=== PATIENT | female | born 1980 | race Caucasian/White ===

== ENCOUNTER 2016-08-10 10:30 | Outpatient (RCR) | payer BC ==
[~2016-08-10 10:30] MED LIST: CPR500T PO; ETD400T PO; HYDR1TAB8 OP; PRX10T PO; SULF1TAB38 PO
== END 2016-10-11 | disposition home or self-care (01) ==
LOC: CARD 10:30
PROVIDERS: ATTEND Internal Medicine Interventional Cardiology
DX: I10 Essential (primary) hypertension (principal); I47.2 Ventricular tachycardia; R00.2 Palpitations; Z72.0 Tobacco use
CPT/HCPCS: 93270

== ENCOUNTER 2017-11-16 17:58 | Emergency (ER) | payer SELFPAY ==
[~2017-11-16] VITALS: Ht 170.2 cm; Wt 80.7 kg
--- OUTSIDE RECORDS SUMMARY | 2017-11-16 18:03 | XMS REPORT ---
Author Author JOANNE ZAMORA Organization [facility] Address [address] [place] [address] Care Team Providers Care Interventional Radiology Rn Name Role Phone JOANNE ZAMORA Unavailable PROBLEMS Type Condition ICD9-CM Code QKG22-HJ Code Onset Dates Condition Status SNOMED Code Problem Screening for malignant neoplasm of the cervix V76.2 Active 837676671 Problem Urinary tract infection, site not specified 599.0 Active 88362580 Problem Dysuria 788.1 Active 60585823 Problem Encounter for long-term (current) use of other medications V58.69 Active 618945408 Problem Unspecified breast screening V76.10 Active 841109924 Problem Abdominal pain, right lower quadrant 789.03 Active 983371064 Problem Special screening examination, human papillomavirus [HPV] V73.81 Active 718918812 ALLERGIES No Known Allergies ENCOUNTERS Encounter Location Date Diagnosis [facility] [address] [id number] [id number] Jul, Dysuria R30.0 and Flank pain R10.9 [facility] [address], [place] [address] Jul, [facility] [id number] [place] [phone] Jul, [facility] [id number] [place] [phone] Jun, [facility] [id number] [place] [phone] Jun, [facility] [id number] [place] [phone] Jun, [facility] [id number] [place] [phone] Jun, [facility] [address] [address] Jun, [facility] [address] [address] Jun, [facility] [id number] [place] [phone] May, [facility] [id number] [place] [phone] May, [facility] [id number] [place] [phone] Jan, [id number] [place] [phone] Jan, [facility] [id number] [place] [phone] Apr, [id number] [place] [phone] Apr, [id number] [place] [phone] Apr, [facility] [id number] [place] [phone] Dec, [facility] [address], [place] [address] Nov, IMMUNIZATIONS No Known Immunizations SOCIAL HISTORY Never Assessed REASON FOR VISIT UTI, burning, flank pain Mago [employer] PLAN OF CARE Activity Details Follow Up prn if not improving in clinic or with PCP Reason: VITAL SIGNS Height 61 in 2017-07-26 Weight 182.4 lbs 2017-07-26 Temperature 99.0 degrees Fahrenheit 2017-07-26 Heart Rate 110 bpm 2017-07-26 Respiratory Rate 18 2017-07-26 BMI 34.46 kg/m2 2017-07-26 Blood pressure systolic 110 mmHg 2017-07-26 Blood pressure diastolic 78 mmHg 2017-07-26 MEDICATIONS Medication Instructions Dosage Frequency Start Date End Date Duration Status Paxil 40 MG Orally Once a day 1 Tablet by Oral route 1 time per day 24h Apr, Active Cipro 500 mg Orally every 12 hrs 1 tablet 12h Jul, Jul, 07 days Active Pyridium 100 mg Orally Three times a day 2 tablets after meals 8h Jul, Jul, 2 day(s) Active RESULTS No Results PROCEDURES Procedure Date Ordered Result Body Site URINALYSIS, AUTO, W/O SCOPE July 26, 2017 URINE CULTURE/COLONY COUNT July 26, 2017 INSTRUCTIONS MEDICATIONS ADMINISTERED No Known Medications MEDICAL (GENERAL) HISTORY Type Description Date Surgical History tonsillectomy and adenoidectomy Surgical History tubal ligation Surgical History stone basket Hospitalization History Surgery(s)/Childbirth(s) only
--- OUTSIDE RECORDS SUMMARY | 2017-11-16 18:03 | XMS REPORT | Continuity of Care Document ---
Author Author [facility] [place] Address Unknown Phone Unavailable Allergies Active Description Code Type Severity Reaction Onset Reported/Identified Relationship to Patient Clinical Status Yes No Known Drug Allergies [id number] Drug Allergy Unknown N/A 09/05/2010 Medications There is no data. Problems Date Dx Coded Attending Type Code Diagnosis Diagnosed By 11/16/2008 YAS CHANG APRN A 599.0 Urinary Tract Infection 11/16/2008 NIC HAUSER DO 599.0 Urinary Tract Infection 12/15/2008 JAVIER CHANG APRNIDI A 729.1 MYALGIA AND MYOSITIS UNSPECIFIED 12/15/2008 CHARLENE MARINELLI YAS A 780.52 INSOMNIA UNSPECIFIED 12/15/2008 AJAY HAUSER DOA K 729.1 MYALGIA AND MYOSITIS UNSPECIFIED 12/15/2008 AJAY HAUSER DOA K 780.52 INSOMNIA UNSPECIFIED 08/23/2009 CHARLENE ISIS YAS A 477.9 ALLERGIC RHINITIS 08/23/2009 CHARLENE GEOSPATIAL ANALYST, YAS A 780.79 MALAISE AND FATIGUE 08/23/2009 HAUSER AJAY BUSTAMANTEA K 477.9 ALLERGIC RHINITIS 08/23/2009 AJAY HAUSER DOA K 780.79 MALAISE AND FATIGUE 09/10/2009 CHARLENERamon MARINELLI YAS A 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 09/10/2009 CHARLENE ISIS YAS A 300.00 ANXIETY UNSPEC 09/10/2009 CHARLENE ISIS YAS A 625.9 pelvic pain 09/10/2009 CHARLENE ISIS YAS A 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, ROUTINE 09/10/2009 AJAY HAUSER DOA K 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 09/10/2009 AJAY HAUSER DOA K 300.00 ANXIETY UNSPEC 09/10/2009 AJAY HAUSER DOA K 625.9 pelvic pain 09/10/2009 AJAY HAUSER DOA K 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, ROUTINE 04/22/2011 JAVIER CHANG APRNIDI A V58.69 taking high-risk medication for a long time 04/22/2011 HAUSER NIC BUSTAMANTE V58.69 taking high-risk medication for a long time 05/01/2011 CHARLENE CLEMENTRamon YAS A 599.0 URINARY TRACT INFECTION SITE NOT SPECIFIED 05/01/2011 NIC HAUSER DO 599.0 URINARY TRACT INFECTION SITE NOT SPECIFIED 05/18/2013 CHARLENE CLEMENTRamon YAS A 788.1 DYSURIA 05/18/2013 NIC HAUSER DO 788.1 DYSURIA 06/14/2013 NIC HAUSER DO 789.03 ABDOMINAL PAIN RIGHT LOWER QUADRANT 06/14/2013 NIC HAUSER DO V73.81 HPV SCREENING 06/14/2013 NIC HAUSER DO V76.10 BREAST CANCER SCREENING 06/14/2013 NIC HAUSER DO V76.2 CERVICAL CANCER SCREENING (PAP SMEAR) 07/13/2016 CHARLENE, YAS Vijay GEOSPATIAL ANALYST Ot 078.11 CONDYLOMA ACUMINATUM 07/13/2016 CHARLENE, YAS Vijay GEOSPATIAL ANALYST Ot 789.03 ABDOMINAL PAIN, RIGHT LOWER QUADRANT 07/13/2016 CHARLENE, YAS Vijay CLEMENTN Ot V72.31 ROUTINE GYNECOLOGICAL EXAMINATION 07/13/2016 CHARLENE, YAS A GEOSPATIAL ANALYST Ot V72.62 LAB EXAM ORDERED PART OF A ROUTINE GE 07/13/2016 CHARLENE, YAS Vijay GEOSPATIAL ANALYST Ot V73.81 SPECIAL SCREENING EXAMINATION, HUMAN PAP 07/13/2016 CHARLENE, YAS Vijay GEOSPATIAL ANALYST Ot V76.10 SCRN MALIGN NEOP, BRST SCREENING, NOS 08/20/2016 YAMILE MAGALLANES, Carlos LUCAS Ot I10 ESSENTIAL (PRIMARY) HYPERTENSION 08/20/2016 Carlos OVALLE MD Ot I47.2 VENTRICULAR TACHYCARDIA 08/20/2016 Carlos OVALLE MD Ot R00.2 PALPITATIONS 08/20/2016 Carlos OVALLE MD Ot Z72.0 TOBACCO USE 10/11/2016 Carlos OVALLE MD Ot I10 ESSENTIAL (PRIMARY) HYPERTENSION 10/11/2016 Carlos OVALLE MD Ot I47.2 VENTRICULAR TACHYCARDIA 10/11/2016 YAMILE MAGALLANES, Carlos LUCAS Ot R00.2 PALPITATIONS 10/11/2016 YAMILE MAGALLANES, Carlos LUCAS Ot Z72.0 TOBACCO USE Procedures Code Description [place] [address] LESION DESTRUCTION 1-14 ( BENIGN) 05/18/2013 23250 UA W/ CULTURE IF INDICATED 05/18/2013 08141 LESION DESTRUCTION 1-14 ( BENIGN) 06/14/2013 34236 US PELVIC COMPL (REFLEX CPT - 44181) 06/14/2013 38097 PAP SMEAR 06/14/2013 Q0091 PAP SMEAR OBTAIN SMEAR 06/14/2013 Results Test Result Range CBC with Auto Diff - 03/16/16 10:58 Baso% 0.60 % 0.00-2.50 Eos 0.1 K/uL 0.0-0.7 Eos% 1.2 % 0.0-7.0 Hct 44.2 % 36.0-46.0 Hgb 14.8 g/dL 13.0-15.0 Lym 3.10 K/uL 0.60-3.40 Lym% 48.1 % 10.0-50.0 MCH 29.5 pg 27.0-31.0 MCHC 33.5 g/dL 32.0-36.0 MCV 88.2 fL 80.0-97.0 Jasper% 5.3 % 0.0-12.0 MPV 12.1 fL 7.4-10.0 Bobby% 44.8 % 37.0-80.0 Plt 263 K/uL 150-400 RBC 5.01 M/uL 3.60-5.00 RDW 13.5 % 11.6-14.8 WBC 6.45 K/uL 5.00-10.00 Bobby 2.89 K/uL 2.00-6.90 Jasper 0.3 K/uL 0.0-0.9 Baso 0.0 K/uL 0.0-0.2 Urine Culture - 03/16/16 10:58 PRELIM CULTURE RESULTS No Growth 24 hours FINAL CULTURE RESULTS <10,000 Gram Positive Mixed Joelle [id number] Skin Contaminant [id number] Further Workup done MEDIA PLATED Setup at 15:40 on 03/16/2016 CULTURE SOURCE urine Encounters ACCT No. Visit Date/Time Discharge Status Pt. Type Provider Facility Loc./Unit Complaint [id number] 06/14/2013 15:28:00 06/14/2013 23:59:59 CLS Outpatient NIC HAUSER DO [id number] 05/18/2013 13:23:00 05/18/2013 23:59:59 CLS Outpatient YAS CHANG APRN [id number] 07/26/2017 15:20:00 07/26/2017 23:59:59 [id number] 10/12/2016 10:30:00 10/12/2016 23:59:59 CLS Preadmit Carlos OVALLE MD [facility] CARD HTN,NSVT,PALPITATIONS [id number] 08/10/2016 10:30:00 10/11/2016 00:01:00 DIS Outpatient Carlos OVALLE MD [facility] CARD HTN,NSVT,PALPITATIONS [id number] 06/23/2013 14:45:00 06/23/2013 23:59:59 CLS Outpatient YAS CHANG APRN [facility] RAD RLQ PAIN [id number] 03/16/2016 11:05:00 03/16/2016 23:59:00 DIS Outpatient Desiree Gardner
[2017-11-16] MEDS ORDERED: ORPHENADRINE 60 MG/2 ML (NORFLEX) AMP IM ONE (19:00)
[2017-11-16] MEDS ORDERED: KETOROLAC 60 MG/2 ML VIAL IM ONE (19:00)
--- NOTE | 2017-11-16 19:54 | ED Back Pain ---
General Chief Complaint: Back Problems Stated Complaint: LOWER BACK PAIN Nursing Triage Note: ARRIVED VIA AMB TO ROOM 04. COMPLAINS OF ONGOING SCIATICA PAIN SINCE SEPTEMBER. SEEN A DR 2 WEEKS AGO ET PUT ON A STEROID, MUSCLE RELAXER, AND IBUPROFEN. OUT OF THE STEROID AND HAS NOT TAKEN THE OTHERS TODAY. Nursing Sepsis Screen: No Definite Risk Source of Information: Patient, Family Exam Limitations: No Limitations History of Present Illness Date Seen by Provider: Nov 16, 2017 Time Seen by Provider: 19:00 Initial Comments Patient is a 36 year old female who presents to the emergency room with c/o low back pain and left side sciatic pain since september. She has seen Dr. Guero dickerson 2 weeks ago and was given flexril and a "steroid". She reports that she has finished the steroid and still having pain. She reports having plenty of the flexiril left. Denies loss of bowel or bladder and saddle paresthesia. Location: Lumbar Spine Timing/Duration: Other (2 weeks) Pain/Injury Location: Back Radiation: Upper Legs Associated Symptoms: muscle spasms; No numbness in legs/feet; lower back pain; No loss of bladder control, No loss of bowel control Allergies and Home Medications Allergies Coded Allergies: No Known Drug Allergies (Unverified , 09/05/10) Patient Home Medication List Home Medication List Reviewed: Yes Constitutional: see HPI; No chills, No fever Musculoskeletal: see HPI, back pain (low back pain and left sciatica pain) Past Tswckhe-Jfpacu-Anzjzb Hx Past Med/Social Hx: Reviewed Nursing Past Med/Soc Hx Patient Social History Recent Foreign Travel: No Contact w/Someone Who Travel: No Recent Infectious Disease Expo: No Past Medical History Surgeries: Yes Respiratory: No Cardiac: No Neurological: No Reproductive Disorders: No Sexually Transmitted Disease: Yes (HPV) Genitourinary: No Gastrointestinal: No Musculoskeletal: Yes (SCIATICA) Endocrine: No Cancer: No Psychosocial: Yes Anxiety Integumentary: No Blood Disorders: Yes Family Medical History Reviewed Nursing Family Hx Physical Exam Vital Signs Vital Signs - First Documented 11/16/17 18:05 Temp 98.0 Pulse 93 Resp 16 B/P (MAP) 136/96 (109) Pulse Ox 99 O2 Delivery Room Air Capillary Refill : Less Than 3 Seconds Height, Weight, BMI Height: 5'7.00" Weight: 178lbs. oz. 80.909975nt; BMI Method:Stated General Appearance: No Apparent Distress, WD/WN Cardiovascular: Regular Rate, Rhythm, No Edema, No Gallop, No JVD, No Murmur, Normal Peripheral Pulses Respiratory: Chest Non Tender, Lungs Clear, Normal Breath Sounds, No Accessory Muscle Use, No Respiratory Distress Back: Normal Inspection, No CVA Tenderness, No Vertebral Tenderness Neurologic/Psychiatric: Alert, Oriented x3, Normal Mood/Affect Skin: Normal Color, Warm/Dry Progress/Results/Core Measures Results/Orders My Orders Orders - RAYMOND MAZARIEGOS Ketorolac Injection (Toradol Injection) (11/16/17 19:00) Orphenadrine Injection (Norflex Injectio (11/16/17 19:00) Medications Given in ED Vital Signs/I&O 11/16/17 11/16/17 11/16/17 18:05 19:08 20:08 Temp 98.0 98.0 97.8 Pulse 93 89 Resp 16 18 B/P (MAP) 136/96 (109) 129/85 (109) Pulse Ox 99 100 O2 Delivery Room Air Room Air Blood Pressure Mean: 109 Progress Progress Note : Progress Note Patient has had relief of pain after toradol and norflex administration. She was instructed to follow up with Dr. Jack within one week and she agrees with plans for discharge, return precautions were given. Departure Impression Primary Impression: Back pain Disposition: 01 HOME, SELF-CARE Condition: Stable/Unchanged Departure-Patient Inst. Decision time for Depature: 19:53 Referrals: MAKSIM MC MD (PCP) Primary Care Physician SHAYY KUHN APRN (Family) Primary Care Physician Patient Instructions: Low Back Pain (DC) Add. Discharge Instructions: Continue your home medications as previously prescribed. Follow-up with Dr. Jack within 1 week for recheck. Return back to the emergency room for any worsening symptoms or any other concerns as needed. All discharge instructions reviewed with patient and/or family. Voiced understanding. RAYMOND MAZARIEGOS Nov 16, 2017 19:53
[2017-11-16 20:08] VITALS: BP 129/85
== END 2017-11-16 20:08 | disposition home or self-care (01) ==
LOC: EDUNIT# 17:58 → ER 17:59
DX: M54.5 Low back pain (principal); F41.9 Anxiety disorder, unspecified; Z86.19 Personal history of other infectious and parasitic diseases
CPT/HCPCS: 99284

== ENCOUNTER 2018-05-11 12:27 | Emergency (ER) | payer BC, OTHER ==
[~2018-05-11] VITALS: Ht 170.2 cm; Wt 85.3 kg
--- OUTSIDE RECORDS SUMMARY | 2018-05-11 12:33 | XMS REPORT | Continuity of Care Document ---
Author Author [facility] Address Unknown Phone Unavailable Allergies Active Description Code Type Severity Reaction Onset Reported/Identified Relationship to Patient Clinical Status Yes No Known Drug Allergies [id number] Drug Allergy Unknown N/A 09/05/2010 Medications There is no data. Problems Date Dx Coded Attending Type Code Diagnosis Diagnosed By 11/16/2008 YAS CHANG APRN A 599.0 Urinary Tract Infection 11/16/2008 NIC HAUSER DO 599.0 Urinary Tract Infection 12/15/2008 JAVIER CHANG APRNIDI A 729.1 MYALGIA AND MYOSITIS UNSPECIFIED 12/15/2008 JAVIER CHANG APRNIDI A 780.52 INSOMNIA UNSPECIFIED 12/15/2008 NIC HAUSER DO K 729.1 MYALGIA AND MYOSITIS UNSPECIFIED 12/15/2008 AJAY HAUSER DOA K 780.52 INSOMNIA UNSPECIFIED 08/23/2009 CHARLENERamon MARINELLI YAS A 477.9 ALLERGIC RHINITIS 08/23/2009 CHARLENE MARINELLI, YAS A 780.79 MALAISE AND FATIGUE 08/23/2009 AJAY HAUSER DOA K 477.9 ALLERGIC RHINITIS 08/23/2009 AJAY HAUSER DOA K 780.79 MALAISE AND FATIGUE 09/10/2009 CHARLENERamon MARINELLI YAS A 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09 ABDOMINAL PAIN, OTHER SPECIFIED SITE 10/01/2010 Ot 592.1 CALCULUS OF URETER 04/22/2011 YAS CHANG APRN V58.69 taking high-risk medication for a long time 04/22/2011 NIC HAUSER DO V58.69 taking high-risk medication for a long time 05/01/2011 YAS CHANG APRN 599.0 URINARY TRACT INFECTION SITE NOT SPECIFIED 05/01/2011 NIC HAUSER DO 599.0 URINARY TRACT INFECTION SITE NOT SPECIFIED 03/21/2012 Ot 465.9 ACUTE URI NOS 03/21/2012 Ot 599.0 URIN TRACT INFECTION NOS 03/21/2012 Ot 786.2 COUGH 07/08/2012 Ot 786.50 CHEST PAIN NOS 07/08/2012 Ot 786.52 PAINFUL RESPIRATION 05/18/2013 YAS CHANG APRN 788.1 DYSURIA 05/18/2013 NIC HAUSER DO 788.1 DYSURIA 06/14/2013 NIC HAUSER DO 789.03 ABDOMINAL PAIN RIGHT LOWER QUADRANT 06/14/2013 NIC HAUSER DO V73.81 HPV SCREENING 06/14/2013 NIC HAUSER DO V76.10 BREAST CANCER SCREENING 06/14/2013 NIC HAUSER DO V76.2 CERVICAL CANCER SCREENING (PAP SMEAR) 07/13/2016 YAS CHANG APRN Ot 078.11 CONDYLOMA ACUMINATUM 07/13/2016 YAS CHANG APRN Ot 789.03 ABDOMINAL PAIN, RIGHT LOWER QUADRANT 07/13/2016 YAS CHANG APRN Ot V72.31 ROUTINE GYNECOLOGICAL EXAMINATION 07/13/2016 YAS CHANG APRN Ot V72.62 LAB EXAM ORDERED PART OF A ROUTINE GE 07/13/2016 YAS CHANG APRN Ot V73.81 SPECIAL SCREENING EXAMINATION, HUMAN PAP 07/13/2016 YAS CHANG APRN Ot V76.10 SCRN MALIGN NEOP, BRST SCREENING, NOS 08/20/2016 YAMILE MAGALLANES, Carlos LUCAS Ot I10 ESSENTIAL (PRIMARY) HYPERTENSION 08/20/2016 YAMILE MAGALLANES, Carlos LUCAS Ot I47.2 VENTRICULAR TACHYCARDIA 08/20/2016 YAMILE MAGALLANES, Carlos LUCAS Ot R00.2 PALPITATIONS 08/20/2016 YAMILE MAGALLANES, Carlos LUCAS Ot Z72.0 TOBACCO USE 10/11/2016 YAMILE MAGALLANES, Carlos LUCAS Ot I10 ESSENTIAL (PRIMARY) HYPERTENSION 10/11/2016 YAMILE MAGALLANES, M SHAYY Ot I47.2 VENTRICULAR TACHYCARDIA 10/11/2016 YAMILE MAGALLANES, Carlos LUCAS Ot R00.2 PALPITATIONS 10/11/2016 YAMILE MAGALLANES, Carlos LUCAS Ot Z72.0 TOBACCO USE 11/16/2017 Ot F41.9 ANXIETY DISORDER, UNSPECIFIED 11/16/2017 Ot M54.5 LOW BACK PAIN 11/16/2017 Ot Z86.19 PERSONAL HISTORY OF OTHER INFECTIOUS AND 02/23/2018 Ot 785.2 CARDIAC MURMURS NEC 02/23/2018 Ot 786.50 CHEST PAIN NOS 02/23/2018 Ot 625.9 FEM GENITAL SYMPTOMS NOS 02/23/2018 Ot 785.2 CARDIAC MURMURS NEC 02/23/2018 Ot 786.50 CHEST PAIN NOS 02/23/2018 Ot 625.9 FEM GENITAL SYMPTOMS NOS 02/23/2018 Ot 592.1 CALCULUS OF URETER 02/23/2018 Ot V72.63 PRE- PROCEDURAL LABORATORY EXAMINATION 02/23/2018 Ot V74.8 SCREEN- BACTERIAL DIS NEC 02/23/2018 Ot 592.1 CALCULUS OF URETER 02/23/2018 YAS CHANG APRN Ot 078.11 CONDYLOMA ACUMINATUM 02/23/2018 YAS CHANG APRN Ot 789.03 ABDOMINAL PAIN, RIGHT LOWER QUADRANT 02/23/2018 YAS CHANG APRN Ot V72.31 ROUTINE GYNECOLOGICAL EXAMINATION 02/23/2018 YAS CHANG APRN Ot V72.62 LAB EXAM ORDERED PART OF A ROUTINE GE 02/23/2018 YAS CHANG APRN Ot V73.81 SPECIAL SCREENING EXAMINATION, HUMAN PAP 02/23/2018 YAS CHANG APRN Ot V76.10 SCRN MALIGN NEOP, BRST SCREENING, NOS 02/23/2018 YAMILE MAGALLANES, Carlos LUCAS Ot I10 ESSENTIAL (PRIMARY) HYPERTENSION 02/23/2018 YAMILE MAGALLANES, Carlos LUCAS Ot I47.2 VENTRICULAR TACHYCARDIA 02/23/2018 YAMILE MAGALLANES, Carlos LUCAS Ot R00.2 PALPITATIONS 02/23/2018 YAMILE MAGALLANES, Carlos LUCAS Ot Z72.0 TOBACCO USE 03/16/2018 YAMILE MAGALLANES, Carlos LUCAS Ot I10 ESSENTIAL (PRIMARY) HYPERTENSION 03/16/2018 YAMILE MAGALLANES, Carlos LUCAS Ot I47.2 VENTRICULAR TACHYCARDIA 03/16/2018 Carlos OVALLE MD Ot R00.2 PALPITATIONS 03/16/2018 Carlos OVALLE MD, Ot Z72.0 TOBACCO USE Procedures Code Description [place] [address] LESION DESTRUCTION 1-14 ( BENIGN) 05/18/2013 64035 UA W/ CULTURE IF INDICATED 05/18/2013 07220 LESION DESTRUCTION 1-14 ( BENIGN) 06/14/2013 17839 US PELVIC COMPL (REFLEX CPT - 21601) 06/14/2013 10080 PAP SMEAR 06/14/2013 Q0091 PAP SMEAR OBTAIN SMEAR 06/14/2013 Results Test Result Range CBC with Auto Diff - 03/16/16 10:58 Baso% 0.60 % 0.00-2.50 Eos 0.1 K/uL 0.0-0.7 Eos% 1.2 % 0.0-7.0 Hct 44.2 % 36.0-46.0 Hgb 14.8 g/dL 13.0-15.0 Lym 3.10 K/uL 0.60-3.40 Lym% 48.1 % 10.0-50.0 MCH 29.5 pg 27.0-31.0 MCHC 33.5 g/dL 32.0-36.0 MCV 88.2 fL 80.0-97.0 Ralls% 5.3 % 0.0-12.0 MPV 12.1 fL 7.4-10.0 Bobby% 44.8 % 37.0-80.0 Plt 263 K/uL 150-400 RBC 5.01 M/uL 3.60-5.00 RDW 13.5 % 11.6-14.8 WBC 6.45 K/uL 5.00-10.00 Bobby 2.89 K/uL 2.00-6.90 Ralls 0.3 K/uL 0.0-0.9 Baso 0.0 K/uL 0.0-0.2 Urine Culture - 03/16/16 10:58 PRELIM CULTURE RESULTS No Growth 24 hours FINAL CULTURE RESULTS <10,000 Gram Positive Mixed Joelle [id number] Skin Contaminant [id number] Further Workup done MEDIA PLATED Setup at 15:40 on 03/16/2016 CULTURE SOURCE urine Encounters ACCT No. Visit Date/Time Discharge Status Pt. Type Provider Facility Loc./Unit Complaint [id number] 06/14/2013 15:28:00 06/14/2013 23:59:59 CLS Outpatient NIC HAUSER DO [id number] 05/18/2013 13:23:00 05/18/2013 23:59:59 CLS Outpatient YAS CHANG APRN [id number] 07/26/2017 15:20:00 07/26/2017 23:59:59 CLS Outpatient CECIL FIGUEROA [facility] [id number] 10/12/2016 10:30:00 10/12/2016 23:59:59 CLS Preadmit Carlos OVALLE MD [facility] CARD HTN,NSVT,PALPITATIONS [id number] 08/10/2016 10:30:00 10/11/2016 00:01:00 DIS Outpatient Carlos OVALLE MD [facility] CARD HTN,NSVT,PALPITATIONS [id number] 06/23/2013 14:45:00 06/23/2013 23:59:59 CLS Outpatient YAS CHANG APRN [facility] RAD RLQ PAIN [id number] 02/23/2018 04:53:00 Document Registration [id number] 11/16/2017 17:59:00 Document Registration [id number] 07/08/2012 16:12:00 Document Registration [id number] 03/21/2012 16:56:00 Document Registration [id number] 10/09/2010 19:23:00 Document Registration [id number] 10/01/2010 05:36:00 Document Registration [id number] 09/30/2010 13:57:00 Document Registration [id number] 09/18/2010 09:32:00 Document Registration [id number] 09/05/2010 16:48:00 Document Registration [id number] 09/18/2009 13:46:00 Document Registration [id number] 09/11/2009 10:20:00 Document Registration [id number] 03/16/2016 11:05:00 03/16/2016 23:59:00 DIS Outpatient Desiree Gardner
[2018-05-11 12:56] LABS: BILIRUBIN,URINE NEGATIVE (NEGATIVE); CLARITY,URINE CLEAR; COLOR,URINE YELLOW; GLUCOSE, URINE (UA) NEGATIVE (NEGATIVE); KETONES,URINE NEGATIVE (NEGATIVE); LEUKOCYTE ESTERASE ,URINE 1+ (NEGATIVE); NITRITE,URINE NEGATIVE (NEGATIVE); PH,URINE 6 (5-9); PROTEIN,URINE NEGATIVE (NEGATIVE); UROBILINOGEN,URINE 1 MG/DL (NORMAL)
[2018-05-11] MEDS ORDERED: NS IV 1000 ML 1,000 ML IV SCH (13:05)
[2018-05-11 13:10] LABS: BACTERIA,URINE TRACE /HPF
[2018-05-11 13:12] LABS: BASOPHILS # (AUTO) 0.1 10^3/uL (0.0-0.1); BASOPHILS % (AUTO) 1 % (0-10); EOSINOPHILS # (AUTO) 0.2 10^3/uL (0.0-0.3); EOSINOPHILS % (AUTO) 2 % (0-10); HEMATOCRIT 43 % (35-52); HEMOGLOBIN 14.2 G/DL (11.5-16.0); LYMPHOCYTES # (AUTO) 4.9 X 10^3 (1.0-4.0); LYMPHOCYTES % (AUTO) 45 % (12-44); MEAN CORPUSCULAR HEMOGLOBIN 28 PG (25-34); MEAN CORPUSCULAR HGB CONC 33 G/DL (32-36); MEAN CORPUSCULAR VOLUME 87 FL (80-99); MEAN PLATELET VOLUME 10.2 FL (7.4-10.4); MONOCYTES # (AUTO) 0.9 X 10^3 (0.0-1.0); MONOCYTES % (AUTO) 8 % (0-12); NEUTROPHILS % (AUTO) 45 % (42-75); PLATELET COUNT 349 10^3/uL (130-400); RED CELL DISTRIBUTION WIDTH 14.5 % (10.0-14.5)
[2018-05-11] MEDS ORDERED: ONDANSETRON 4 MG/2 ML (SDV) Z0FRAN IVP ONE (13:15)
[2018-05-11 13:25] LABS: ALANINE AMINOTRANSFERASE 26 U/L (0-55); ALBUMIN 3.9 GM/DL (3.2-4.5); ALKALINE PHOSPHATASE 67 U/L (40-136); BILIRUBIN,TOTAL 0.3 MG/DL (0.1-1.0); BUN/CREATININE RATIO 10; CALCIUM 8.9 MG/DL (8.5-10.1); CARBON DIOXIDE 25 MMOL/L (21-32); CHLORIDE 105 MMOL/L (98-107); CREATININE SERUM 0.68 MG/DL (0.60-1.30); GFR ESTIMATED > 60; GLUCOSE 96 MG/DL (70-105); POTASSIUM 3.9 MMOL/L (3.6-5.0); SODIUM 139 MMOL/L (135-145); TOTAL PROTEIN 6.4 GM/DL (6.4-8.2)
[2018-05-11] MEDS ORDERED: CIPR-225 PO (13:30)
--- NOTE | 2018-05-11 13:32 | ED Abdominal Pain ---
General Chief Complaint: General Problems/Pain Stated Complaint: RASH;ABD PAIN/BACK PAIN Nursing Triage Note: ARRIVED VIA AMB TO TRIAGE WITHOUT DIFFIUCLTY. COMPLAINS OF LOWER ABD PAIN THAT RADIATES INTO BACK, RASH ON ONE SIDE OF HER BODY, HEADACHE, AND FEELING THOUGH SHE WILL PASS OUT. Sepsis Screen: No Definite Risk History of Present Illness Date Seen by Provider: May 11, 2018 Time Seen by Provider: 12:40 Initial Comments 37-year-old female presents for abdominal and back pain. She is also had mild nausea for the last 24 hours. She reports frequent UTIs with her last one being a month ago. She was also recently treated with a Medrol Dosepak for an allergic reaction on her right arm. It improved while she was taking the medication and hence now returned but to a lesser extent. She does report a history of kidney stones in the past. She took naproxen 500 mg approximately one hour prior to arrival. She does not drink water, she primarily drinks pop. Timing/Duration: 12-24 Hours Severity/Quality: Mild Location: Flank, Generalized Abdomen Radiation: No Radiation Activities at Onset: None Modifying Factors: Improves With Urinating Associated Symptoms: Back Pain; No Fever/Chills, No Fatigue, No Headache, No Heartburn; Nausea/Vomiting, Rash (right arm and neck bilat. ); No Swelling/Mass in Abdomen Allergies and Home Medications Allergies Coded Allergies: No Known Drug Allergies (Unverified , 09/05/10) Home Medications Ciprofloxacin HCl 500 Mg Tablet, 500 MG PO BID Prescribed by: GENEVIEVE SPENCER on 05/11/18 1330 Ondansetron 4 Mg Tab.rapdis, 8 MG PO Q6H PRN for NAUSEA/VOMITING-1ST LINE Prescribed by: GENEVIEVE SPENCER on 05/11/18 1440 Patient Home Medication List Home Medication List Reviewed: Yes Review of Systems Review of Systems Constitutional: no symptoms reported, see HPI Gastrointestinal: See HPI, Abdominal Pain, Nausea, Poor Appetite Genitourinary: See HPI, Frequency, Flank Pain, Pain, Urgency Skin: see HPI, rash All Other Systems Reviewed Negative Unless Noted: Yes Past Kiambri-Jncxvc-Elmnsp Hx Patient Social History Alcohol Use: Denies Use Recreational Drug Use: No Smoking Status: Current Everyday Smoker Type Used: Cigarettes Recent Foreign Travel: No Contact w/Someone Who Travel: No Recent Infectious Disease Expo: No Immunizations Up To Date Tetanus Booster (TDap): Unknown PED Vaccines UTD: Yes Past Medical History Surgeries: Yes Adenoidectomy, Tonsillectomy, Tubal Ligation Respiratory: No Cardiac: No Neurological: No : No Last Menstrual Period: May 04, 2018 Reproductive Disorders: No Sexually Transmitted Disease: Yes (HPV) Genitourinary: No Gastrointestinal: No Musculoskeletal: Yes (SCIATICA) Endocrine: No Cancer: No Psychosocial: Yes Anxiety Integumentary: No Blood Disorders: Yes Physical Exam Vital Signs Vital Signs - First Documented 05/11/18 12:33 Temp 97.9 Pulse 89 Resp 16 B/P (MAP) 197/92 (127) Pulse Ox 98 O2 Delivery Room Air Capillary Refill : Less Than 3 Seconds Height/Weight/BMI Height: 5'7.00" Weight: 188lbs. oz. 85.591467aq; BMI Method:Stated General Appearance: WD/WN, no apparent distress HEENT: PERRL/EOMI, normal ENT inspection, TMs normal, pharynx normal Neck: non-tender, full range of motion, supple, normal inspection Respiratory: chest non-tender, lungs clear, normal breath sounds Cardiovascular: normal peripheral pulses, regular rate, rhythm, no edema, no murmur Gastrointestinal: normal bowel sounds, soft, no pulsatile mass; No distended, No guarding, No rebound; tenderness (generalized. Neg Gardner sign. ); No mass, No hepatomegaly Extremities: normal range of motion, non-tender, normal inspection, no pedal edema, no calf tenderness, normal capillary refill Back: normal inspection, no CVA tenderness Skin: normal color, warm/dry, rash (macular rash to right upper ext and bilat sides of neck. ) Lymphatic: no adenopathy Progress/Results/Core Measures Results/Orders Lab Results Laboratory Tests Test 05/11/18 12:52 05/11/18 13:03 Range/Units Urine Color YELLOW Urine Clarity CLEAR Urine pH 6 5-9 Urine Specific [place] 1.020 1.016-1.022 Urine Protein NEGATIVE NEGATIVE Urine Glucose (UA) NEGATIVE NEGATIVE Urine Ketones NEGATIVE NEGATIVE Urine Nitrite NEGATIVE NEGATIVE Urine Bilirubin NEGATIVE NEGATIVE Urine Urobilinogen 1 NORMAL MG/DL Urine Leukocyte Esterase 1+ H NEGATIVE Urine RBC (Auto) NEGATIVE NEGATIVE Urine RBC NONE /HPF Urine WBC 2-5 /HPF Urine Squamous Epithelial Cells 5-10 /HPF Urine Crystals NONE /LPF Urine Bacteria TRACE /HPF Urine Casts NONE /LPF Urine Mucus SMALL H /LPF Urine Culture Indicated YES White Blood Count 11.0 4.3-11.0 10^3/uL Red Blood Count 5.00 4.35-5.85 10^6/uL Hemoglobin 14.2 11.5-16.0 G/DL Hematocrit 43 35-52 % Mean Corpuscular Volume 87 80-99 FL Mean Corpuscular Hemoglobin 28 25-34 PG Mean Corpuscular Hemoglobin Concent 33 32-36 G/DL Red Cell Distribution Width 14.5 10.0-14.5 % Platelet Count 349 130-400 10^3/uL Mean Platelet Volume 10.2 7.4-10.4 FL Neutrophils (%) (Auto) 45 42-75 % Lymphocytes (%) (Auto) 45 H 12-44 % Monocytes (%) (Auto) 8 0-12 % Eosinophils (%) (Auto) 2 0-10 % Basophils (%) (Auto) 1 0-10 % Neutrophils # (Auto) 5.0 1.8-7.8 X 10^3 Lymphocytes # (Auto) 4.9 H 1.0-4.0 X 10^3 Monocytes # (Auto) 0.9 0.0-1.0 X 10^3 Eosinophils # (Auto) 0.2 0.0-0.3 10^3/uL Basophils # (Auto) 0.1 0.0-0.1 10^3/uL Sodium Level 139 135-145 MMOL/L Potassium Level 3.9 3.6-5.0 MMOL/L Chloride Level 105 98-107 MMOL/L Carbon Dioxide Level 25 21-32 MMOL/L Anion Gap 9 5-14 MMOL/L Blood Urea Nitrogen 7 7-18 MG/DL Creatinine 0.68 0.60-1.30 MG/DL Estimat Glomerular Filtration Rate > 60 BUN/Creatinine Ratio 10 Glucose Level 96 70-105 MG/DL Calcium Level 8.9 8.5-10.1 MG/DL Corrected Calcium 9.0 8.5-10.1 MG/DL Total Bilirubin 0.3 0.1-1.0 MG/DL Aspartate Amino Transf (AST/SGOT) 18 5-34 U/L Alanine Aminotransferase (ALT/SGPT) 26 0-55 U/L Alkaline Phosphatase 67 40-136 U/L Total Protein 6.4 6.4-8.2 GM/DL Albumin 3.9 3.2-4.5 GM/DL My Orders Orders - GENEVIEVE SPENCER Ua Culture If Indicated (05/11/18 12:32) Urine Bedside (05/11/18 12:32) Ondansetron Injection (Zofran Injectio (05/11/18 13:15) Saline Lock/Iv-Start (05/11/18 13:05) Ns Iv 1000 Ml (Sodium Chloride 0.9%) (05/11/18 13:05) Cbc With Automated Diff (05/11/18 13:06) Comprehensive Metabolic Panel (05/11/18 13:06) Urine Culture (05/11/18 12:52) Tramadol Tablet (Ultram Tablet) (05/11/18 13:22) Dexamethasone Injection (Decadron Inject (05/11/18 14:45) Medications Given in ED Current Medications Medications Dose Ordered Sig/Angi Route Start Time Stop Time Status Last Admin Dose Admin Dexamethasone Sodium Phosphate 10 mg ONCE ONCE IV 05/11/18 14:45 05/11/18 14:46 DC 05/11/18 14:48 10 MG Ondansetron HCl 4 mg ONCE ONCE IVP 05/11/18 13:15 05/11/18 13:16 DC 05/11/18 13:15 4 MG Vital Signs/I&O 05/11/18 12:33 Temp 97.9 Pulse 89 Resp 16 B/P (MAP) 197/92 (127) Pulse Ox 98 O2 Delivery Room Air Blood Pressure Mean: 127 Progress Progress Note : Time: 12:40 Progress Note Patient seen and evaluated. Will obtain labs, IV normal saline 1 L, Zofran 4 mg IV. Reassured patient that it was not shingles since the rash does cross the midline of her C-spine. There are also no vesicles and she is not having a painful rash. Will continue to monitor. 1330 patient reports improvement in her nausea, she is continuing to have abdominal pain. We'll give tramadol 50 mg orally. 1400 patient does report improvement in her pain. We'll give Decadron 10 mg IV for the rash. 1415 discharge instructions and return precautions reviewed with her. Discussed preventative measures for recurrent UTIs. I stressed the importance of her getting a follow-up UA, approx 2-3 days after finishing antibiotics. Departure Impression Primary Impression: UTI (urinary tract infection) Qualified Codes: N30.01 - Acute cystitis with hematuria Additional Impression: Pain, abdominal Qualified Codes: R10.84 - Generalized abdominal pain Disposition: HOME, SELF-CARE Condition: Improved Departure-Patient Inst. Decision time for Depature: 14:15 Referrals: MAKSIM MC MD (PCP) Primary Care Physician SHAYY KUHN APRN (Family) Primary Care Physician Patient Instructions: Urinary Tract Infection, Adult (DC) Add. Discharge Instructions: Drink 8-16 ounces water every 2 hours while awake. Empty bladder every 2 hours while awake. Have a repeat UA done approximately 2 days after you finish her antibiotics at her worksite clinic. If you continue to give regular urinary tract infections, follow-up with urology. You may take Zofran every 8 hours as needed for nausea. Eat 1 cup of fresh blueberries or drink 1 cup of cranberry juice daily. Take your antibiotic as prescribed for the full duration of treatment. You may alternate between Tylenol 650 mg and ibuprofen 600 mg every 4 hours for pain or fever. Follow-up with your primary care provider if symptoms are not improving or worsen in the next 2-3 days. All discharge instructions reviewed with patient and/or family. Voiced understanding. Scripts Ondansetron (Ondansetron Odt) 4 Mg Tab.rapdis 8 MG PO Q6H PRN for NAUSEA/VOMITING-1ST LINE, #12 TAB 0 Refills Prov: GENEVIEVE SPENCER 05/11/18 Ciprofloxacin HCl (Cipro) 500 Mg Tablet 500 MG PO BID, #14 TAB 0 Refills Prov: GENEVIEVE SPENCER 05/11/18 GENEVIEVE SPENCER May 11, 2018 13:32
[2018-05-11] MEDS ORDERED: ONDA4TAB11 PO (14:40)
[2018-05-11] MEDS ORDERED: DEXAMETHASONE 10 MG/ML (DECADRON) 1 ML VIAL IV ONE (14:45)
[2018-05-11 14:52] VITALS: BP 133/74
== END 2018-05-11 14:52 | disposition home or self-care (01) ==
LOC: EDUNIT# 12:27 → ER 12:28
DX: N39.0 Urinary tract infection, site not specified (principal); F41.9 Anxiety disorder, unspecified; F17.210 Nicotine dependence, cigarettes, uncomplicated; Z86.19 Personal history of other infectious and parasitic diseases; Z87.440 Personal history of urinary (tract) infections; Z87.442 Personal history of urinary calculi
CPT/HCPCS: 36415; 80053; 81000; 85025; 87077; 87088

== ENCOUNTER 2018-10-17 17:21 | Emergency (ER) | payer BC ==
[~2018-10-17] VITALS: Ht 167.6 cm; Wt 81.6 kg
[~2018-10-17 17:21] MED LIST changes: +CIPR-225 PO; +ONDA4TAB11 PO
--- OUTSIDE RECORDS SUMMARY | 2018-10-17 17:28 | XMS REPORT ---
Author Author Migration, Doctor Organization [facility] Address Unknown Phone Unavailable Care Team Providers Care See Supervisor Name Role Phone Migration, Doctor Unavailable Unavailable PROBLEMS Type Condition ICD9-CM Code VNL23-EJ Code Onset Dates Condition Status SNOMED Code Problem Screening for malignant neoplasm of the cervix V76.2 Active 599214796 Problem Dysuria 788.1 Active 74107492 Problem Urinary tract infection, site not specified 599.0 Active 75952918 Problem Unspecified breast screening V76.10 Active 983480579 Problem Encounter for long-term (current) use of other medications V58.69 Active 592367981 Problem Special screening examination, human papillomavirus [HPV] V73.81 Active 152240262 Problem Abdominal pain, right lower quadrant 789.03 Active 540818199 ALLERGIES No Information ENCOUNTERS Encounter Location Date Diagnosis [facility] [id number] [place] [id number] Jul, Dysuria R30.0 and Flank pain R10.9 [facility] [id number] [place] [phone] Jul, [facility] [id number] [place] [phone] Jul, [facility] [id number] [place] [phone] 24 Jun, 2013 [facility] [id number] [place] [phone] Jun, [facility] [id number] [place] [phone] Jun, [facility] [id number] [place] [phone] Jun, [facility] [id number] [place] [phone] Jun, [facility] [id number] [place] [address] Jun, [facility] [id number] [address] May, [facility] [address] [place] [address] May, [facility] [id number] [place] [phone] Jan, [facility] [id number] [place] [phone] Jan, [id number] [place] [phone] Apr, [address] [place] [id number] Apr[address] [place] [phone] Apr, [facility] [id number], [place] [address] Dec, [facility] [id number], [place] [address] Nov, IMMUNIZATIONS No Known Immunizations SOCIAL HISTORY Never Assessed [place] [place] VITAL SIGNS MEDICATIONS No Known Medications RESULTS No Results PROCEDURES No Known procedures INSTRUCTIONS MEDICATIONS ADMINISTERED No Known Medications MEDICAL (GENERAL) HISTORY Type Description Date Surgical History tonsillectomy and adenoidectomy Surgical History tubal ligation Surgical History stone basket Hospitalization History Surgery(s)/Childbirth(s) only
--- OUTSIDE RECORDS SUMMARY | 2018-10-17 17:28 | XMS REPORT ---
Author Author Migration, Doctor Organization [facility] Address Unknown Phone Unavailable Care Team Providers Care Net Manager Name Role Phone Migration, Doctor Unavailable Unavailable PROBLEMS Type Condition ICD9-CM Code MSJ14-AC Code Onset Dates Condition Status SNOMED Code Problem Screening for malignant neoplasm of the cervix V76.2 Active 477972229 Problem Dysuria 788.1 Active 54783735 Problem Urinary tract infection, site not specified 599.0 Active 52551204 Problem Unspecified breast screening V76.10 Active 602889701 Problem Encounter for long-term (current) use of other medications V58.69 Active 095106278 Problem Special screening examination, human papillomavirus [HPV] V73.81 Active 666169941 Problem Abdominal pain, right lower quadrant 789.03 Active 591967287 ALLERGIES No Information ENCOUNTERS Encounter Location Date Diagnosis [facility] [address] [id number] [id number] Jul, Dysuria R30.0 and Flank pain R10.9 [facility] [id number] [place] [phone] Jul, [facility] [id number] [place] [phone] Jul, [facility] [id number] [place] [phone] 24 Jun, 2013 [facility] [id number] [place] [phone] Jun, [facility] [id number] [place] [phone] Jun, [facility] [id number] [place] [phone] Jun, [facility] [id number] [place] [phone] Jun, [facility] [id number] [address] Jun, [facility] [id number] [address] May, [facility] [id number] [address] May, [facility] [id number] [address] Jan, [facility] [id number] [place] [phone] Jan, [facility] [id number] [place] [phone] Apr, [facility] [id number] [place] [phone] Apr, [id number] [place] [phone] Apr, [facility] [id number] [address] Dec, [facility] [id number] [address] Nov, IMMUNIZATIONS No Known Immunizations SOCIAL HISTORY Never Assessed REASON FOR VISIT EMR-[facility] [place] PLAN OF CARE VITAL SIGNS MEDICATIONS Medication Instructions Dosage Frequency Start Date End Date Duration Status Paxil 20 mg 1 Tablet by Oral route 1 time per day Apr, Active Cipro 500 mg 1 tablet by Oral route every 12 hours for 10 day(s) Apr, Active RESULTS No Results PROCEDURES No Known procedures INSTRUCTIONS MEDICATIONS ADMINISTERED No Known Medications MEDICAL (GENERAL) HISTORY Type Description Date Surgical History tonsillectomy and adenoidectomy Surgical History tubal ligation Surgical History stone basket Hospitalization History Surgery(s)/Childbirth(s) only
--- OUTSIDE RECORDS SUMMARY | 2018-10-17 17:28 | XMS REPORT | Continuity of Care Document ---
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 09/10/2009 CHARLENE MARINELLI YAS A 300.00 ANXIETY UNSPEC 09/10/2009 CHARLENE APRN, YAS A 625.9 pelvic pain 09/10/2009 CHARLENE MARINELLI YAS A V72.31 [employer]DLAND [employer]HTER SPECIALIST EXAM, ROUTINE 09/10/2009 AJAY HAUSER DOA K 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 09/10/2009 AJAY HAUSER DOA K 300.00 ANXIETY UNSPEC 09/10/2009 AJAY HAUSER DOA K 625.9 pelvic pain 09/10/2009 AJAY HAUSER DOA K V72.31 WILDLAND FI[employer] FIGHTER SPECIALIST EXAM, ROUTINE 09/05/2010 Ot 599.0 URIN TRACT [...] LUCAS Ot R00.2 PALPITATIONS 08/20/2016 YAMILE MAGALLANES, M SHAYY Ot Z72.0 TOBACCO USE 10/11/2016 YAMILE MAGALLANES, [...] 592.1 CALCULUS OF URETER 02/23/2018 Ot V72.63 PRE-PROCEDURAL LABORATORY EXAMINATION 02/23/2018 Ot V74.8 SCREEN-BACTERIAL DIS NEC 02/23/2018 Ot 592.1 CALCULUS OF [...] NEOP, BRST SCREENING, NOS 02/23/2018 YAMILE MAGALLANES, M SHAYY Ot I10 ESSENTIAL (PRIMARY) HYPERTENSION 02/23/2018 YAMILE MAGALLANES, M SHAYY Ot I47.2 VENTRICULAR TACHYCARDIA 02/23/2018 YAMILE MAGALLANES, M SHAYY Ot R00.2 PALPITATIONS 02/23/2018 YAMILE MAGALLANES, M SHAYY Ot Z72.0 TOBACCO USE 03/16/2018 YAMILE MAGALLANES, M SHAYY Ot I10 ESSENTIAL (PRIMARY) HYPERTENSION 03/16/2018 YAMILE MAGALLANES, M SHAYY Ot I47.2 VENTRICULAR TACHYCARDIA 03/16/2018 YAMILE MAGALLANES, M SHAYY Ot R00.2 PALPITATIONS 03/16/2018 YAMILE MAGALLANES, M SHAYY Ot Z72.0 TOBACCO USE 05/11/2018 YAMILE MAGALLANES, M SHAYY Ot I10 ESSENTIAL (PRIMARY) HYPERTENSION 05/11/2018 YAMILE MAGALLANES, M SHAYY Ot I47.2 VENTRICULAR TACHYCARDIA 05/11/2018 YAMILE MAGALLANES, M SHAYY Ot R00.2 PALPITATIONS 05/11/2018 YAMILE MAGALLANES, Carlos LUCAS Ot Z72.0 TOBACCO USE 05/11/2018 JOHANNAGENEVIEVEP Ot F17.210 NICOTINE DEPENDENCE, CIGARETTES, UNCOMPL 05/11/2018 JOHANNA, GENEVIEVE FILLING HAND Ot F41.9 ANXIETY DISORDER, UNSPECIFIED 05/11/2018 JOHANNA, GENEVIEVE FILLING HAND Ot N39.0 URINARY TRACT INFECTION, SITE NOT SPECIF 05/11/2018 GENEVIEVE SPENCERP Ot R10.84 GENERALIZED ABDOMINAL PAIN 05/11/2018 GENEVIEVE SPENCER FILLING HAND Ot Z86.19 PERSONAL HISTORY OF OTHER INFECTIOUS AND 05/11/2018 JOHANNA, GENEVIEVE FILLING HAND Ot Z87.440 PERSONAL HISTORY OF URINARY (TRACT) INFE 05/11/2018 GENEVIEVE SPENCERP Ot Z87.442 PERSONAL HISTORY OF URINARY CALCULI 05/13/2018 JOHANNA GENEVIEVE FILLING HAND Ot F17.210 NICOTINE DEPENDENCE, CIGARETTES, UNCOMPL 05/13/2018 JOHANNA, GENEVIEVE FILLING HAND Ot F41.9 ANXIETY DISORDER, UNSPECIFIED 05/13/2018 JOHANNA, GENEVIEVE FILLING HAND Ot N39.0 URINARY TRACT INFECTION, SITE NOT SPECIF 05/13/2018 GENEVIEVE SPENCER FILLING HAND Ot R10.84 GENERALIZED ABDOMINAL PAIN 05/13/2018 JOHANNA, GENEVIEVE FILLING HAND Ot Z86.19 PERSONAL HISTORY OF OTHER INFECTIOUS AND 05/13/2018 JOHANNA, GENEVIEVE FILLING HAND Ot Z87.440 PERSONAL HISTORY OF URINARY (TRACT) INFE 05/13/2018 JOHANNA, GENEVIEVE FILLING HAND Ot Z87.442 PERSONAL HISTORY OF URINARY CALCULI 05/22/2018 JOHANNA, GENEVIEVE FILLING HAND Ot F17.210 NICOTINE DEPENDENCE, CIGARETTES, UNCOMPL 05/22/2018 JOHANNA, GENEVIEVE FILLING HAND Ot F41.9 ANXIETY DISORDER, UNSPECIFIED 05/22/2018 JOHANNA, GENEVIEVE FILLING HAND Ot N39.0 URINARY TRACT INFECTION, SITE NOT SPECIF 05/22/2018 JOHANNA, GENEVIEVE FILLING HAND Ot R10.84 GENERALIZED ABDOMINAL PAIN 05/22/2018 JOHANNA GENEVIEVE FILLING HAND Ot Z86.19 PERSONAL HISTORY OF OTHER INFECTIOUS AND 05/22/2018 JOHANNA, GENEVIEVE FILLING HAND Ot Z87.440 PERSONAL HISTORY OF URINARY (TRACT) INFE 05/22/2018 JOHANNA, GENEVIEVE FILLING HAND Ot Z87.442 PERSONAL HISTORY OF URINARY CALCULI 08/15/2018 YAS CHANG DIRECTOR OF COUNTERINTELLIGENCE Ot 078.11 CONDYLOMA ACUMINATUM 08/15/2018 YAS CHANG DIRECTOR OF COUNTERINTELLIGENCE Ot 789.03 ABDOMINAL PAIN, RIGHT LOWER QUADRANT 08/15/2018 YAS CHANG DIRECTOR OF COUNTERINTELLIGENCE Ot V72.31 ROUTINE GYNECOLOGICAL EXAMINATION 08/15/2018 YAS CHANG DIRECTOR OF COUNTERINTELLIGENCE Ot V72.62 LAB EXAM ORDERED PART OF A ROUTINE GE 08/15/2018 YAS CHANG DIRECTOR OF COUNTERINTELLIGENCE Ot V73.81 SPECIAL SCREENING EXAMINATION, HUMAN PAP 08/15/2018 YAS CHANG DIRECTOR OF COUNTERINTELLIGENCE Ot V76.10 SCRN MALIGN NEOP, BRST SCREENING, NOS 08/15/2018 YAS CHANG DIRECTOR OF COUNTERINTELLIGENCE Ot 078.11 CONDYLOMA ACUMINATUM 08/15/2018 YAS CHANG DIRECTOR OF COUNTERINTELLIGENCE Ot 789.03 ABDOMINAL PAIN, RIGHT LOWER QUADRANT 08/15/2018 YAS CHANG DIRECTOR OF COUNTERINTELLIGENCE Ot V72.31 ROUTINE GYNECOLOGICAL EXAMINATION 08/15/2018 YAS CHANG DIRECTOR OF COUNTERINTELLIGENCE Ot V72.62 LAB EXAM ORDERED PART OF A ROUTINE GE 08/15/2018 YAS CHANG DIRECTOR OF COUNTERINTELLIGENCE Ot V73.81 SPECIAL SCREENING EXAMINATION, HUMAN PAP 08/15/2018 YAS CHANG DIRECTOR OF COUNTERINTELLIGENCE Ot V76.10 SCRN MALIGN NEOP, BRST SCREENING, NOS 08/15/2018 YAS CHANG DIRECTOR OF COUNTERINTELLIGENCE Ot 078.11 CONDYLOMA ACUMINATUM 08/15/2018 YAS CHANG DIRECTOR OF COUNTERINTELLIGENCE Ot 789.03 ABDOMINAL PAIN, RIGHT LOWER QUADRANT 08/15/2018 YAS CHANG DIRECTOR OF COUNTERINTELLIGENCE Ot V72.31 ROUTINE GYNECOLOGICAL EXAMINATION 08/15/2018 YAS CHANG DIRECTOR OF COUNTERINTELLIGENCE Ot V72.62 LAB EXAM ORDERED PART OF A ROUTINE GE 08/15/2018 YAS CHANG DIRECTOR OF COUNTERINTELLIGENCE Ot V73.81 SPECIAL SCREENING EXAMINATION, HUMAN PAP 08/15/2018 YAS CHANG DIRECTOR OF COUNTERINTELLIGENCE Ot V76.10 SCRN MALIGN NEOP, BRST SCREENING, NOS 08/19/2018 YAS CHANG DIRECTOR OF COUNTERINTELLIGENCE Ot 078.11 CONDYLOMA ACUMINATUM 08/19/2018 YAS CHANG DIRECTOR OF COUNTERINTELLIGENCE Ot 789.03 ABDOMINAL PAIN, RIGHT LOWER QUADRANT 08/19/2018 YAS CHNAG DIRECTOR OF COUNTERINTELLIGENCE Ot V72.31 ROUTINE GYNECOLOGICAL EXAMINATION 08/19/2018 YAS CHANG DIRECTOR OF COUNTERINTELLIGENCE Ot V72.62 LAB EXAM ORDERED PART OF A ROUTINE GE 08/19/2018 YAS CHANG DIRECTOR OF COUNTERINTELLIGENCE Ot V73.81 SPECIAL SCREENING EXAMINATION, HUMAN PAP 08/19/2018 YAS CHANG DIRECTOR OF COUNTERINTELLIGENCE Ot V76.10 SCRN MALIGN NEOP, BRST SCREENING, NOS Procedures Code Description [place] [address] LESION DESTRUCTION 1-14 (BENIGN) 05/18/2013 24155 UA W/ CULTURE IF INDICATED 05/18/2013 77623 LESION DESTRUCTION 1-14 (BENIGN) 06/14/2013 54277 US PELVIC COMPL (REFLEX CPT- 51539) 06/14/2013 30819 PAP SMEAR 06/14/2013 Q0091 PAP SMEAR OBTAIN SMEAR 06/14/2013 Results Test Result Range Complete urinalysis with reflex to culture - 05/11/18 12:52 Urine color determination YELLOW NRG Urine clarity determination CLEAR NRG Urine pH measurement by test strip 6 5-9 Specific gravity of urine by test strip 1.020 1.016-1.022 Urine protein assay by test strip, semi-quantitative NEGATIVE NEGATIVE Urine glucose detection by automated test strip NEGATIVE NEGATIVE Erythrocytes detection in urine sediment by light microscopy NEGATIVE NEGATIVE Urine ketones detection by automated test strip NEGATIVE NEGATIVE Urine nitrite detection by test strip NEGATIVE NEGATIVE Urine total bilirubin detection by test strip NEGATIVE NEGATIVE Urine urobilinogen measurement by automated test strip (mass/volume) 1 mg/dL NORMAL Urine leukocyte esterase detection by dipstick 1+ NEGATIVE Automated urine sediment erythrocyte count by microscopy (number/high power field) NONE NRG Automated urine sediment leukocyte count by microscopy (number/high power field) [HPF] NRG Bacteria detection in urine sediment by light microscopy TRACE NRG Squamous epithelial cells detection in urine sediment by light microscopy 5-10 NRG Crystals detection in urine sediment by light microscopy NONE NRG Casts detection in urine sediment by light microscopy NONE NRG Mucus detection in urine sediment by light microscopy SMALL NRG Complete urinalysis with reflex to culture YES NRG Bacterial urine culture - 05/11/18 12:52 Bacterial urine culture SEE COMMEN NRG COLONY COUNT . NRG Complete blood count (CBC) with automated white blood cell (WBC) differential - 05/11/18 13:03 Blood leukocytes automated count (number/volume) 11.0 10*3/uL 4.3-11.0 Blood erythrocytes automated count (number/volume) 5.00 10*6/uL 4.35-5.85 Venous blood hemoglobin measurement (mass/volume) 14.2 g/dL 11.5-16.0 Blood hematocrit (volume fraction) 43 % 35-52 Automated erythrocyte mean corpuscular volume 87 [foz_us] 80-99 Automated erythrocyte mean corpuscular hemoglobin (mass per erythrocyte) 28 pg 25-34 Automated erythrocyte mean corpuscular hemoglobin concentration measurement (mass/volume) 33 g/dL 32-36 Automated erythrocyte distribution width ratio 14.5 % 10.0- 14.5 Automated blood platelet count (count/volume) 349 10*3/uL 130-400 Automated blood platelet mean volume measurement 10.2 [foz_us] 7.4-10.4 Automated blood neutrophils/100 leukocytes 45 % 42-75 Automated blood lymphocytes/100 leukocytes 45 % 12-44 Blood monocytes/100 leukocytes 8 % 0-12 Automated blood eosinophils/100 leukocytes 2 % 0-10 Automated blood basophils/100 leukocytes 1 % 0-10 Blood neutrophils automated count (number/volume) 5.0 10*3 1.8-7.8 Blood lymphocytes automated count (number/volume) 4.9 10*3 1.0-4.0 Blood monocytes automated count (number/volume) 0.9 10*3 0.0- 1.0 Automated eosinophil count 0.2 10*3/uL 0.0-0.3 Automated blood basophil count (count/volume) 0.1 10*3/uL 0.0-0.1 Comprehensive metabolic panel - 05/11/18 13:03 Serum or plasma sodium measurement (moles/volume) 139 mmol/L 135-145 Serum or plasma potassium measurement (moles/volume) 3.9 mmol/L 3.6-5.0 Serum or plasma chloride measurement (moles/volume) 105 mmol/L 98-107 Carbon dioxide 25 mmol/L 21-32 Serum or plasma anion gap determination (moles/volume) 9 mmol/L 5-14 Serum or plasma urea nitrogen measurement (mass/volume) 7 mg/dL 7-18 Serum or plasma creatinine measurement (mass/volume) 0.68 mg/dL 0.60-1.30 Serum or plasma urea nitrogen/creatinine mass ratio 10 NRG Serum or plasma creatinine measurement with calculation of estimated glomerular filtration rate > NRG Serum or plasma glucose measurement (mass/volume) 96 mg/dL 70-105 Serum or plasma calcium measurement (mass/volume) 8.9 mg/dL 8.5-10.1 Serum or plasma total bilirubin measurement (mass/volume) 0.3 mg/dL 0.1-1.0 Serum or plasma alkaline phosphatase measurement (enzymatic activity/volume) 67 U/L 40-136 Serum or plasma aspartate aminotransferase measurement (enzymatic activity/volume) 18 U/L 5-34 Serum or plasma alanine aminotransferase measurement (enzymatic activity/volume) 26 U/L 0-55 Serum or plasma protein measurement (mass/volume) 6.4 g/dL 6.4-8.2 Serum or plasma albumin measurement (mass/volume) 3.9 g/dL 3.2-4.5 CALCIUM CORRECTED 9.0 mg/dL 8.5-10.1 Encounters ACCT No. Visit Date/Time Discharge Status Pt. Type Provider Facility Loc./Unit Complaint [id number] 06/14/2013 15:28:00 06/14/2013 23:59:59 CLS Outpatient NIC HAUSER DO [id number] 05/18/2013 13:23:00 05/18/2013 23:59:59 CLS Outpatient CHARLENE YAS MARINELLI [id number] 05/11/2018 12:28:00 05/11/2018 14:52:00 DIS Emergency GENEVIEVE SPENCERP [facility] [address] ER RASH;ABD PAIN/BACK PAIN [id number] 10/12/2016 10:30:00 10/12/2016 23:59:59 CLS Preadmit Carlos OVALLE MD [facility] [address] CARD HTN,NSVT,PALPITATIONS [id number] 08/10/2016 10:30:00 10/11/2016 00:01:00 DIS Outpatient Carlos OVALLE MD [facility] [address] CARD HTN,NSVT,PALPITATIONS [id number] 06/23/2013 14:45:00 06/23/2013 23:59:59 CLS Outpatient YAS CHANG APRN [facility] [address] RAD RLQ PAIN [id number] 10/17/2018 17:24:00 ACT Emergency MARILYN MAGALLANES, DORCAS Addison [facility] [address] ER BLURRY VISION/JAW PAIN/MIGRAINES [id number] 02/23/2018 04:53:00 Document Registration [id number] 11/16/2017 17:59:00 Document Registration [id number] 07/08/2012 16:12:00 Document Registration [id number] 03/21/2012 16:56:00 Document Registration [id number] 10/09/2010 19:23:00 Document Registration [id number] 10/01/2010 05:36:00 Document Registration [id number] 09/30/2010 13:57:00 Document Registration [id number] 09/18/2010 09:32:00 Document Registration [id number] 09/05/2010 16:48:00 Document Registration [id number] 09/18/2009 13:46:00 Document Registration [id number] 09/11/2009 10:20:00 Document Registration
[2018-10-17] MEDS ORDERED: KETOROLAC 30 MG/ML VIAL IVP ONE (17:45)
[2018-10-17] MEDS ORDERED: NS IV 1000 ML 1,000 ML IV SCH (17:45)
[2018-10-17] MEDS ORDERED: PROCHLORPERAZINE 10 MG/2ML INJ (COMPAZINE) IV ONE (17:45)
[2018-10-17] MEDS ORDERED: diphenhydrAMINE 50 MG/ML INJ (BENADRYL) IVP ONE (17:45)
--- NOTE | 2018-10-17 17:50 | ED Neurological Problem ---
General Chief Complaint: General Problems/Pain Stated Complaint: BLURRY VISION/JAW PAIN/MIGRAINES Nursing Triage Note: PT SENT FROM CLINIC WITH COMPLAINT BLURRY VISION, LEFT JAW PAIN, CONFUSION, MIGRAINE, AND FREQUENT URINATION. STATES SYMPTOMS STARTED WEDNESDAY MORNING AFTER WAKING UP. Nursing Sepsis Screen: No Definite Risk Source: patient, family Exam Limitations: no limitations (DORCAS SANDERS MD) History of Present Illness Date Seen by Provider: Oct 17, 2018 Time Seen by Provider: 17:46 Initial Comments This 37-year-old white female presents with a daily history of migraine, blurred vision, left jaw pain, confusion, and frequent urination. Patient has had a long-standing history of migraines but this symptom complex is new to the patient. The patient was sent to emergency Department for evaluation for possible stroke. The patient in addition to the symptom complex described above is also complaining of bilateral facial numbness. She denies fever or chills, she has no stiff neck, she denies chest pain, palpitations, shortness of breath, or productive cough. The patient has had nausea but no vomiting. (DORCAS SANDERS MD) Allergies and Home Medications Allergies Coded Allergies: No Known Drug Allergies (Unverified , 09/05/10) Home Medications Ciprofloxacin HCl 500 Mg Tablet, 500 MG PO BID Prescribed by: GENEVIEVE SPENCER on 05/11/18 1330 Ondansetron 4 Mg Tab.rapdis, 8 MG PO Q6H PRN for NAUSEA/VOMITING-1ST LINE Prescribed by: GENEVIEVE SPENCER on 05/11/18 1440 Patient Home Medication List Home Medication List Reviewed: Yes (DORCAS SANDERS MD) Review of Systems Review of Systems Constitutional: No chills, No diaphoresis, No fever; malaise, weakness Eyes: See HPI; Denies Blindness; Blurred Vision; Denies Photophobia Ears, Nose, Mouth, Throat: denies ear pain, denies nose pain, denies epistaxis Respiratory: No cough, No short of breath Cardiovascular: No chest pain, No palpitations Gastrointestinal: No abdominal pain, No diarrhea; nausea Genitourinary: see HPI; No dysuria; frequency Musculoskeletal: No back pain, No joint swelling; muscle weakness Skin: No change in color, No rash Psychiatric/Neurological: No Symptoms Reported Endocrine: No Symptoms Reported Hematologic/Lymphatic: No Symptoms Reported (DORCAS SANDERS MD) Past Uifbgdw-Bossns-Zwptle Hx Patient Social History Alcohol Use: Occasionally Uses Recreational Drug Use: No Smoking Status: Current Everyday Smoker Type Used: Cigarettes Recent Foreign Travel: No Contact w/Someone Who Travel: No Recent Infectious Disease Expo: No (DORCAS SANDERS MD) Immunizations Up To Date Tetanus Booster (TDap): Unknown PED Vaccines UTD: Yes (DORCAS SANDERS MD) Past Medical History Surgeries: Yes Adenoidectomy, Tonsillectomy, Tubal Ligation Respiratory: No Cardiac: No Neurological: No Reproductive Disorders: No Sexually Transmitted Disease: Yes (HPV) Genitourinary: No Gastrointestinal: No Musculoskeletal: Yes (SCIATICA) Endocrine: No Cancer: No Psychosocial: Yes Anxiety Integumentary: No Blood Disorders: Yes (DORCAS SANDERS MD) Physical Exam Vital Signs Vital Signs - First Documented 10/17/18 17:27 Temp 100.2 Pulse 86 Resp 17 B/P (MAP) 169/102 (124) Pulse Ox 98 O2 Delivery Room Air (ORQUIDEA,JEWELS K DO) Vital Signs Capillary Refill : Less Than 3 Seconds (DORCAS SANDERS MD) Height, Weight, BMI Height: 5'6.00" Weight: 180lbs. oz. 81.353945kl; BMI Method:Stated General Appearance: WD/WN, mild distress Neck: non-tender, full range of motion, supple Respiratory: lungs clear Cardiovascular: regular rate, rhythm Gastrointestinal: normal bowel sounds, non tender, soft Back: normal inspection, no CVA tenderness, no vertebral tenderness Extremities: normal range of motion, non-tender, normal inspection Neurologic/Psychiatric: no motor/sensory deficits, alert, normal mood/affect Crainal Nerves: normal hearing, normal speech, PERRL Motor/Sensory: no motor deficit, no sensory deficit Skin: normal color, warm/dry (DORCAS SANDERS MD) Progress/Results/Core Measures Results/Orders Lab Results Laboratory Tests Test 10/17/18 17:45 10/17/18 18:55 Range/Units White Blood Count 7.4 4.3-11.0 10^3/uL Red Blood Count 5.03 4.35-5.85 10^6/uL Hemoglobin 14.4 11.5-16.0 G/DL Hematocrit 43 35-52 % Mean Corpuscular Volume 86 80-99 FL Mean Corpuscular Hemoglobin 29 25-34 PG Mean Corpuscular Hemoglobin Concent 33 32-36 G/DL Red Cell Distribution Width 14.3 10.0-14.5 % Platelet Count 323 130-400 10^3/uL Mean Platelet Volume 10.4 7.4-10.4 FL Neutrophils (%) (Auto) 50 42-75 % Lymphocytes (%) (Auto) 43 12-44 % Monocytes (%) (Auto) 6 0-12 % Eosinophils (%) (Auto) 1 0-10 % Basophils (%) (Auto) 1 0-10 % Neutrophils # (Auto) 3.7 1.8-7.8 X 10^3 Lymphocytes # (Auto) 3.2 1.0-4.0 X 10^3 Monocytes # (Auto) 0.4 0.0-1.0 X 10^3 Eosinophils # (Auto) 0.1 0.0-0.3 10^3/uL Basophils # (Auto) 0.1 0.0-0.1 10^3/uL Prothrombin Time 13.1 12.2-14.7 SEC INR Comment 1.0 0.8-1.4 Sodium Level 138 135-145 MMOL/L Potassium Level 3.6 3.6-5.0 MMOL/L Chloride Level 104 98-107 MMOL/L Carbon Dioxide Level 25 21-32 MMOL/L Anion Gap 9 5-14 MMOL/L Blood Urea Nitrogen 4 L 7-18 MG/DL Creatinine 0.75 0.60-1.30 MG/DL Estimat Glomerular Filtration Rate > 60 BUN/Creatinine Ratio 5 Glucose Level 141 H 70-105 MG/DL Calcium Level 9.7 8.5-10.1 MG/DL Corrected Calcium 9.6 8.5-10.1 MG/DL Total Bilirubin 0.6 0.1-1.0 MG/DL Aspartate Amino Transf (AST/SGOT) 18 5-34 U/L Alanine Aminotransferase (ALT/SGPT) 31 0-55 U/L Alkaline Phosphatase 96 40-136 U/L Troponin I < 0.028 <0.028 NG/ML Total Protein 7.1 6.4-8.2 GM/DL Albumin 4.1 3.2-4.5 GM/DL Urine Color YELLOW Urine Clarity CLEAR Urine pH 6 5-9 Urine Specific [place] 1.010 L 1.016-1.022 Urine Protein NEGATIVE NEGATIVE Urine Glucose (UA) NEGATIVE NEGATIVE Urine Ketones NEGATIVE NEGATIVE Urine Nitrite NEGATIVE NEGATIVE Urine Bilirubin NEGATIVE NEGATIVE Urine Urobilinogen 4 H NORMAL MG/DL Urine Leukocyte Esterase 1+ H NEGATIVE Urine RBC (Auto) 2+ H NEGATIVE Urine RBC RARE /HPF Urine WBC 0-2 /HPF Urine Squamous Epithelial Cells 10-25 H /HPF Urine Crystals NONE /LPF Urine Bacteria TRACE /HPF Urine Casts NONE /LPF Urine Mucus SMALL H /LPF Urine Culture Indicated NO Urine Opiates Screen NEGATIVE NEGATIVE Urine Oxycodone Screen NEGATIVE NEGATIVE Urine Methadone Screen NEGATIVE NEGATIVE Urine Propoxyphene Screen NEGATIVE NEGATIVE Urine Barbiturates Screen NEGATIVE NEGATIVE Ur Tricyclic Antidepressants Screen NEGATIVE NEGATIVE Urine Phencyclidine Screen NEGATIVE NEGATIVE Urine Amphetamines Screen NEGATIVE NEGATIVE Urine Methamphetamines Screen NEGATIVE NEGATIVE Urine Benzodiazepines Screen NEGATIVE NEGATIVE Urine Cocaine Screen NEGATIVE NEGATIVE Urine Cannabinoids Screen NEGATIVE NEGATIVE (JEWELS HEARD DO) My Orders Orders - JEWELS HEARD DO Drug Screen Stat (Urine) (10/17/18 18:40) (JEWELS HEARD DO) Medications Given in ED Current Medications Medications Dose Ordered Sig/Angi Route Start Time Stop Time Status Last Admin Dose Admin Diphenhydramine HCl 25 mg ONCE ONCE IVP 10/17/18 17:45 10/17/18 17:47 DC 10/17/18 18:02 25 MG Ketorolac Tromethamine 30 mg ONCE ONCE IVP 10/17/18 17:45 10/17/18 17:47 DC 10/17/18 17:59 30 MG Prochlorperazine Edisylate 10 mg ONCE ONCE IV 10/17/18 17:45 10/17/18 17:47 DC 10/17/18 18:00 10 MG (JEWELS HEARD DO) Vital Signs/I&O 10/17/18 17:27 Temp 100.2 Pulse 86 Resp 17 B/P (MAP) 169/102 (124) Pulse Ox 98 O2 Delivery Room Air (JEWELS HEARD DO) Blood Pressure Mean: 124 Progress Progress Note : Progress Note 1800--ASSUMED CARE FROM DR. SANDERS, ALL STUDIES PENDING HEADACHE RESOLVED WITH MEDICATIONS NO SYMPTOMS AT DISMISSAL (JEWELS HEARD DO) Diagnostic Imaging Comments CT HEAD--NO ACUTE PROCESS, CHRONIC CHANGES, PER RADIOLOGIST REPORT AT 1838 Reviewed: Reviewed by Me (JEWELS HEARD DO) Departure Impression Primary Impression: Headache Disposition: 01 HOME, SELF-CARE Condition: Improved Departure-Patient Inst. Referrals: NO,LOCAL PHYSICIAN (PCP/Family) Primary Care Physician Patient Instructions: Headache, Adult (DC) Add. Discharge Instructions: HOME, REST LOTS OF CLEAR LIQUIDS FOLLOW UP WITH YOUR DR IF SYMPTOMS PERSIST All discharge instructions reviewed with patient and/or family. Voiced und erstanding. DORCAS SANDERS MD Oct 17, 2018 17:50 JEWELS HEARD DO Oct 17, 2018 18:29
[2018-10-17 17:53] LABS: BASOPHILS # (AUTO) 0.1 10^3/uL (0.0-0.1); BASOPHILS % (AUTO) 1 % (0-10); EOSINOPHILS # (AUTO) 0.1 10^3/uL (0.0-0.3); EOSINOPHILS % (AUTO) 1 % (0-10); HEMATOCRIT 43 % (35-52); HEMOGLOBIN 14.4 G/DL (11.5-16.0); LYMPHOCYTES # (AUTO) 3.2 X 10^3 (1.0-4.0); LYMPHOCYTES % (AUTO) 43 % (12-44); MEAN CORPUSCULAR HEMOGLOBIN 29 PG (25-34); MEAN CORPUSCULAR HGB CONC 33 G/DL (32-36); MEAN CORPUSCULAR VOLUME 86 FL (80-99); MEAN PLATELET VOLUME 10.4 FL (7.4-10.4); MONOCYTES # (AUTO) 0.4 X 10^3 (0.0-1.0); MONOCYTES % (AUTO) 6 % (0-12); NEUTROPHILS # (AUTO) 3.7 X 10^3 (1.8-7.8); NEUTROPHILS % (AUTO) 50 % (42-75); PLATELET COUNT 323 10^3/uL (130-400); RED CELL DISTRIBUTION WIDTH 14.3 % (10.0-14.5); WHITE BLOOD COUNT 7.4 10^3/uL (4.3-11.0)
[2018-10-17 18:06] LABS: PROTHROMBIN TIME PATIENT 13.1 SEC (12.2-14.7)
[2018-10-17 18:24] LABS: ALANINE AMINOTRANSFERASE 31 U/L (0-55); ALBUMIN 4.1 GM/DL (3.2-4.5); ALKALINE PHOSPHATASE 96 U/L (40-136); BILIRUBIN,TOTAL 0.6 MG/DL (0.1-1.0); BUN/CREATININE RATIO 5; CALCIUM 9.7 MG/DL (8.5-10.1); CARBON DIOXIDE 25 MMOL/L (21-32); CHLORIDE 104 MMOL/L (98-107); CREATININE SERUM 0.75 MG/DL (0.60-1.30); GFR ESTIMATED > 60; GLUCOSE 141 MG/DL (70-105); POTASSIUM 3.6 MMOL/L (3.6-5.0); SODIUM 138 MMOL/L (135-145); TOTAL PROTEIN 7.1 GM/DL (6.4-8.2)
--- NOTE | 2018-10-17 18:33 | Diagnostic Imaging Report ---
EXAMINATION: CT brain without contrast from 10/17/2018. TECHNIQUE: Multiple contiguous axial images were obtained through the brain without the use of intravenous contrast. Auto Exposure Controls were utilized during the CT exam to meet ALARA standards for radiation dose reduction. INDICATION: No history provided. FINDINGS: A few scattered calcifications are noted, likely due to an old infectious etiology. There is no acute hemorrhage or infarct. No mass, mass effect, or midline shift appreciated. Atrophy noted towards the vertex anteriorly. Calvarium is intact. IMPRESSION: 1. Chronic findings. No acute intracranial process. Dictated by: Dictated on workstation # [id number]
--- NOTE | 2018-10-17 18:51 | NUR ---
report recieved from ramya Peter. assumed primary nurse role.
[2018-10-17 19:01] LABS: BILIRUBIN,URINE NEGATIVE (NEGATIVE); CLARITY,URINE CLEAR; COLOR,URINE YELLOW; GLUCOSE, URINE (UA) NEGATIVE (NEGATIVE); KETONES,URINE NEGATIVE (NEGATIVE); LEUKOCYTE ESTERASE ,URINE 1+ (NEGATIVE); NITRITE,URINE NEGATIVE (NEGATIVE); PH,URINE 6 (5-9); PROTEIN,URINE NEGATIVE (NEGATIVE); UROBILINOGEN,URINE 4 MG/DL (NORMAL)
[2018-10-17 19:10] LABS: BACTERIA,URINE TRACE /HPF; RBC,URINE RARE /HPF; WBC,URINE 0-2 /HPF
[2018-10-17 19:11] LABS: AMPHETAMINE SCREEN, URINE NEGATIVE (NEGATIVE); BARBITURATE SCREEN URINE NEGATIVE (NEGATIVE); BENZODIAZEPINES SCREEN URINE NEGATIVE (NEGATIVE); CANNABINOID SCREEN, URINE NEGATIVE (NEGATIVE); COCAINE SCREEN URINE NEGATIVE (NEGATIVE); METHADONE STAT NEGATIVE (NEGATIVE); METHAMPHETAMINE SCREEN URINE S NEGATIVE (NEGATIVE); OPIATE SCREEN URINE NEGATIVE (NEGATIVE); OXYCODONE STAT NEGATIVE (NEGATIVE); PROPOXYPHENE STAT NEGATIVE (NEGATIVE); TRICYCLIC ANTIDEPRESSANTS SCRE NEGATIVE (NEGATIVE)
[2018-10-17 19:25] VITALS: BP 139/96
== END 2018-10-17 19:25 | disposition home or self-care (01) ==
LOC: EDUNIT# 17:21 → ER 17:24
DX: R51 Headache (principal); F41.9 Anxiety disorder, unspecified; F17.210 Nicotine dependence, cigarettes, uncomplicated; Z86.69 Personal history of other diseases of the nervous system and sense organs; Z98.51 Tubal ligation status; Z90.89 Acquired absence of other organs
CPT/HCPCS: 36415; 70450; 80053; 80306; 81000; 84484; 85025; 85610; 93005; 96361; 96374; 96375

== ENCOUNTER 2018-12-21 19:38 | Emergency (ER) | payer BC ==
[~2018-12-21] VITALS: Ht 167 cm; Wt 81.0 kg
--- NOTE | 2018-12-21 19:44 | ED Chest Pain ---
General Stated Complaint: SOB, CHEST PAIN Source: patient Exam Limitations: no limitations History of Present Illness Date Seen by Provider: Dec 21, 2018 Time Seen by Provider: 19:43 Initial Comments To ER central chest pain shortness of breath for the past few days. States it hurts to take a deep breath, she's had a productive cough for the past few month s. She does smoke cigarettes. Timing/Duration: changing over time Severity/Quality: moderate Location: central Radiation: no radiation Activities at Onset: none ASA po SPA MANAGER: No NTG SL SPA MANAGER: No Associated Symptoms: shortness of breath Allergies and Home Medications Allergies Coded Allergies: No Known Drug Allergies (Unverified , 09/05/10) Home Medications Ciprofloxacin HCl 500 Mg Tablet, 500 MG PO BID Prescribed by: GENEVIEVE SPENCER on 05/11/18 1330 Ondansetron 4 Mg Tab.rapdis, 8 MG PO Q6H PRN for NAUSEA/VOMITING-1ST LINE Prescribed by: GENEVIEVE SPENCER on 05/11/18 1440 Patient Home Medication List Home Medication List Reviewed: Yes Review of Systems Review of Systems Constitutional: see HPI EENTM: See HPI Respiratory: See HPI, Cough, Shortness of Air Cardiovascular: See HPI, Chest Pain Gastrointestinal: See HPI Genitourinary: No Symptoms Reported Musculoskeletal: no symptoms reported Skin: no symptoms reported Psychiatric/Neurological: No Symptoms Reported Past Ykfyjyc-Sfjqxr-Dfsrvf Hx Patient Social History Type Used: Cigarettes Recent Foreign Travel: No Contact w/Someone Who Travel: No Immunizations Up To Date Tetanus Booster (TDap): Unknown PED Vaccines UTD: Yes Past Medical History Surgeries: Yes Adenoidectomy, Tonsillectomy, Tubal Ligation Respiratory: No Cardiac: No Neurological: No Reproductive Disorders: No Sexually Transmitted Disease: Yes (HPV) Genitourinary: No Gastrointestinal: No Musculoskeletal: Yes (SCIATICA) Endocrine: No Cancer: No Psychosocial: Yes Anxiety Integumentary: No Blood Disorders: Yes Physical Exam Vital Signs Vital Signs - First Documented Capillary Refill : Height, Weight, BMI Height: 5'6.00" Weight: 180lbs. oz. [id number]; BMI Method:Stated General Appearance: No Apparent Distress, WD/WN Neck: Full Range of Motion, Normal Inspection Respiratory: Lungs Clear, Normal Breath Sounds, No Accessory Muscle Use, No Respiratory Distress Cardiovascular: Regular Rate, Rhythm, Normal Peripheral Pulses Gastrointestinal: Normal Bowel Sounds, Non Tender, Soft Neurologic/Psychiatric: Alert, Oriented x3 Skin: Normal Color, Warm/Dry Progress/Results/Core Measures Results/Orders Lab Results Laboratory Tests Test 12/21/18 19:52 Range/Units White Blood Count 7.5 4.3-11.0 10^3/uL Red Blood Count 5.09 4.35-5.85 10^6/uL Hemoglobin 14.6 11.5-16.0 G/DL Hematocrit 43 35-52 % Mean Corpuscular Volume 85 80-99 FL Mean Corpuscular Hemoglobin 29 25-34 PG Mean Corpuscular Hemoglobin Concent 34 32-36 G/DL Red Cell Distribution Width 14.9 H 10.0-14.5 % Platelet Count 310 130-400 10^3/uL Mean Platelet Volume 10.4 7.4-10.4 FL Neutrophils (%) (Auto) 46 42-75 % Lymphocytes (%) (Auto) 44 12-44 % Monocytes (%) (Auto) 7 0-12 % Eosinophils (%) (Auto) 2 0-10 % Basophils (%) (Auto) 1 0-10 % Neutrophils # (Auto) 3.4 1.8-7.8 X 10^3 Lymphocytes # (Auto) 3.3 1.0-4.0 X 10^3 Monocytes # (Auto) 0.6 0.0-1.0 X 10^3 Eosinophils # (Auto) 0.1 0.0-0.3 10^3/uL Basophils # (Auto) 0.1 0.0-0.1 10^3/uL Sodium Level 138 135-145 MMOL/L Potassium Level 3.6 3.6-5.0 MMOL/L Chloride Level 106 98-107 MMOL/L Carbon Dioxide Level 22 21-32 MMOL/L Anion Gap 10 5-14 MMOL/L Blood Urea Nitrogen 4 L 7-18 MG/DL Creatinine 0.76 0.60-1.30 MG/DL Estimat Glomerular Filtration Rate > 60 BUN/Creatinine Ratio 5 Glucose Level 124 H 70-105 MG/DL Calcium Level 9.6 8.5-10.1 MG/DL Corrected Calcium 9.4 8.5-10.1 MG/DL Total Bilirubin 0.4 0.1-1.0 MG/DL Aspartate Amino Transf (AST/SGOT) 19 5-34 U/L Alanine Aminotransferase (ALT/SGPT) 30 0-55 U/L Alkaline Phosphatase 96 40-136 U/L Total Protein 7.3 6.4-8.2 GM/DL Albumin 4.2 3.2-4.5 GM/DL My Orders Orders - JENNIE CUMMINGS APRN Cbc With Automated Diff (12/21/18 19:42) Chest 1 View, Ap/Pa Only (12/21/18 19:42) Ekg Tracing (12/21/18 19:42) Comprehensive Metabolic Panel (12/21/18 19:42) O2 (12/21/18 19:42) Monitor-Rhythm Ecg Trace Only (12/21/18 19:42) Lipid Panel (12/22/18 06:00) Ed Iv/Invasive Line Start (12/21/18 19:42) Aspirin Chewable Tablet (Baby Aspirin Ch (12/21/18 19:45) Promethazine/ Codeine Syrup (Phenergan W (12/21/18 20:15) Medications Given in ED Current Medications Medications Dose Ordered Sig/Angi Route Start Time Stop Time Status Last Admin Dose Admin Aspirin 324 mg ONCE ONCE PO 12/21/18 19:45 12/21/18 19:46 DC 12/21/18 19:55 324 MG Promethazine HCl/ Codeine 7.5 ml ONCE ONCE PO 12/21/18 20:15 12/21/18 20:16 DC 12/21/18 20:20 7.5 ML Vital Signs/I&O 12/21/18 12/21/18 19:38 19:38 Temp 37.6 Pulse 103 Resp 22 B/P (MAP) 176/98 (124) O2 Delivery Room Air Room Air Departure Impression Primary Impression: Bronchitis Disposition: 01 HOME, SELF-CARE Condition: Stable Departure-Patient Inst. Decision time for Depature: 20:36 Referrals: NO,LOCAL PHYSICIAN (PCP/Family) Primary Care Physician Patient Instructions: Acute Bronchitis, Adult (DC), Chronic Bronchitis, Acute Bronchitis Scripts Prednisone (Prednisone) 20 Mg Tab 40 MG PO DAILY, #8 TAB 0 Refills Prov: JENNIE CUMMINGS APRN 12/21/18 Promethazine HCl/Codeine (Prometh-Codein 6.25-10 mg/5 ml) 5 Ml Syrup 5 ML PO Q6H PRN for COUGH, #120 ML Prov: JENNIE CUMMINGS APRN 12/21/18 Azithromycin (Azithromycin) 250 Mg Tablet 250 MG PO UD, #6 TAB TAKE 2 TABLETS ON DAY ONE THEN TAKE 1 TABLET DAILY FOR FOUR MORE DAYS Prov: JENNIE CUMMINGS APRN 12/21/18 JENNIE CUMMINGS APRN Dec 21, 2018 19:44
[2018-12-21] MEDS ORDERED: ASPIRIN 81 MG CHEW (CHILDREN'S ASA) PO ONE (19:45)
[2018-12-21 20:00] LABS: BASOPHILS # (AUTO) 0.1 10^3/uL (0.0-0.1); BASOPHILS % (AUTO) 1 % (0-10); EOSINOPHILS # (AUTO) 0.1 10^3/uL (0.0-0.3); EOSINOPHILS % (AUTO) 2 % (0-10); HEMATOCRIT 43 % (35-52); HEMOGLOBIN 14.6 G/DL (11.5-16.0); LYMPHOCYTES # (AUTO) 3.3 X 10^3 (1.0-4.0); LYMPHOCYTES % (AUTO) 44 % (12-44); MEAN CORPUSCULAR HEMOGLOBIN 29 PG (25-34); MEAN CORPUSCULAR HGB CONC 34 G/DL (32-36); MEAN CORPUSCULAR VOLUME 85 FL (80-99); MEAN PLATELET VOLUME 10.4 FL (7.4-10.4); MONOCYTES # (AUTO) 0.6 X 10^3 (0.0-1.0); MONOCYTES % (AUTO) 7 % (0-12); NEUTROPHILS # (AUTO) 3.4 X 10^3 (1.8-7.8); NEUTROPHILS % (AUTO) 46 % (42-75); PLATELET COUNT 310 10^3/uL (130-400); RED CELL DISTRIBUTION WIDTH 14.9 % (10.0-14.5); WHITE BLOOD COUNT 7.5 10^3/uL (4.3-11.0)
--- NOTE | 2018-12-21 20:12 | Diagnostic Imaging Report ---
INDICATION: Cough Upright portable AP view of the chest is obtained with comparison made to study of 07/08/2012. FINDINGS: Heart size and pulmonary vascularity are within normal limits, and the lungs are clear, bilaterally. IMPRESSION: Unremarkable chest. Dictated by: Dictated on workstation # [id number]
[2018-12-21] MEDS ORDERED: PROMETHAZINE/ CODEINE SYRUP 5 ML UDC PO ONE (20:15)
[2018-12-21 20:22] LABS: ALANINE AMINOTRANSFERASE 30 U/L (0-55); ALBUMIN 4.2 GM/DL (3.2-4.5); ALKALINE PHOSPHATASE 96 U/L (40-136); BILIRUBIN,TOTAL 0.4 MG/DL (0.1-1.0); BUN/CREATININE RATIO 5; CALCIUM 9.6 MG/DL (8.5-10.1); CARBON DIOXIDE 22 MMOL/L (21-32); CHLORIDE 106 MMOL/L (98-107); CREATININE SERUM 0.76 MG/DL (0.60-1.30); GFR ESTIMATED > 60; GLUCOSE 124 MG/DL (70-105); POTASSIUM 3.6 MMOL/L (3.6-5.0); SODIUM 138 MMOL/L (135-145); TOTAL PROTEIN 7.3 GM/DL (6.4-8.2)
[2018-12-21] MEDS ORDERED: PRD20T PO (20:40)
[2018-12-21] MEDS ORDERED: AZIT250T12 PO (20:40)
[2018-12-21] MEDS ORDERED: PROM5SYR PO (20:40)
[2018-12-21 20:45] VITALS: BP 164/113
== END 2018-12-21 20:48 | disposition home or self-care (01) ==
LOC: EDUNIT# 19:38 → ER 19:40
DX: J40 Bronchitis, not specified as acute or chronic (principal); F41.9 Anxiety disorder, unspecified; F17.210 Nicotine dependence, cigarettes, uncomplicated; Z90.89 Acquired absence of other organs; Z98.51 Tubal ligation status
CPT/HCPCS: 36415; 71045; 80053; 85025; 93005; 93041

== ENCOUNTER 2019-01-06 10:17 | Emergency (ER) | payer BC ==
[~2019-01-06] VITALS: Ht 167 cm; Wt 87.4 kg
[~2019-01-06 10:17] MED LIST changes: +AZIT250T12 PO; +PRD20T PO; +PROM5SYR PO
[2019-01-06] MEDS ORDERED: KETOROLAC 30 MG/ML VIAL IVP ONE (10:45)
--- NOTE | 2019-01-06 10:45 | ED Back Pain ---
General Chief Complaint: Back Problems Stated Complaint: LOWER ABD/BACK PAIN Source of Information: Patient Exam Limitations: No Limitations History of Present Illness Date Seen by Provider: Jan 06, 2019 Time Seen by Provider: 10:45 Initial Comments To ER with low back pain that radiates through to the front, describes this as a pulsatile pain that occasionally radiates to her head. She just finished Zithromax for bronchitis and is currently on doxycycline and prednisone. Location: Lumbar Spine Timing/Duration: 2-3 Days Severity: Moderate Pain/Injury Location: Back Associated Symptoms: lower back pain Allergies and Home Medications Allergies Coded Allergies: sulfamethoxazole (Verified Allergy, Unknown, 01/06/19) PT REPORTS TURNING RED trimethoprim (Verified Allergy, Unknown, 01/06/19) PT REPORTS TURNING RED Home Medications Azithromycin 250 Mg Tablet, 250 MG PO UD TAKE 2 TABLETS ON DAY ONE THEN TAKE 1 TABLET DAILY FOR FOUR MORE DAYS Prescribed by: JENNIE CUMMINGS on 12/21/182039 Ciprofloxacin HCl 500 Mg Tablet, 500 MG PO BID Prescribed by: GENEVIEVE SPENCER on 05/11/18 1330 Hyoscyamine Sulfate 0.125 Mg Tab.subl, 0.125 MG SL Q4H PRN for CRAMPS Prescribed by: JENNIE CUMMINGS on 01/06/19 1213 Ondansetron 4 Mg Tab.rapdis, 8 MG PO Q6H PRN for NAUSEA/VOMITING-1ST LINE Prescribed by: GENEVIEVE SPENCER on 05/11/18 1440 Prednisone 20 Mg Tab, 40 MG PO DAILY Prescribed by: JENNIE CUMMINGS on 12/21/182039 Promethazine HCl/Codeine 5 Ml Syrup, 5 ML PO Q6H PRN for COUGH Prescribed by: JENNIE CUMMINGS on 12/21/182039 Patient Home Medication List Home Medication List Reviewed: Yes Review of Systems Constitutional: see HPI EENTM: see HPI Respiratory: no symptoms reported Cardiovascular: no symptoms reported Genitourinary: no symptoms reported Musculoskeletal: see HPI Skin: no symptoms reported Psychiatric/Neurological: No Symptoms Reported Past Cpavics-Wzigmn-Qeemwc Hx Patient Social History Alcohol Use: Denies Use Recreational Drug Use: No Smoking Status: Current Everyday Smoker Type Used: Cigarettes 2nd Hand Smoke Exposure: Yes Recent Hopitalizations: No Physical Abuse: No Sexual Abuse: No Immunizations Up To Date Tetanus Booster (TDap): Unknown PED Vaccines UTD: Yes Past Medical History Surgeries: Yes Adenoidectomy, Tonsillectomy, Tubal Ligation Respiratory: No Cardiac: No Neurological: No Reproductive Disorders: 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 oz. 81.598452xe; 29.00 BMI Method:Stated General Appearance: No Apparent Distress, WD/WN HEENT: PERRL/EOMI, TMs Normal Neck: Full Range of Motion, Normal Inspection Respiratory: No Accessory Muscle Use, No Respiratory Distress Gastrointestinal: Normal Bowel Sounds, Non Tender, Soft Extremity: Normal Capillary Refill, Normal Inspection Neurologic/Psychiatric: Alert, Oriented x3 Skin: Normal Color, Warm/Dry Progress/Results/Core Measures Results/Orders Lab Results Laboratory Tests Test 01/06/19 10:50 01/06/19 11:38 Range/Units White Blood Count 10.9 4.3-11.0 10^3/uL Red Blood Count 4.99 4.35-5.85 10^6/uL Hemoglobin 14.1 11.5-16.0 G/DL Hematocrit 43 35-52 % Mean Corpuscular Volume 85 80-99 FL Mean Corpuscular Hemoglobin 28 25-34 PG Mean Corpuscular Hemoglobin Concent 33 32-36 G/DL Red Cell Distribution Width 15.9 H 10.0-14.5 % Platelet Count 351 130-400 10^3/uL Mean Platelet Volume 10.2 7.4-10.4 FL Neutrophils (%) (Auto) 80 H 42-75 % Lymphocytes (%) (Auto) 16 12-44 % Monocytes (%) (Auto) 3 0-12 % Eosinophils (%) (Auto) 1 0-10 % Basophils (%) (Auto) 0 0-10 % Neutrophils # (Auto) 8.7 H 1.8-7.8 X 10^3 Lymphocytes # (Auto) 1.7 1.0-4.0 X 10^3 Monocytes # (Auto) 0.4 0.0-1.0 X 10^3 Eosinophils # (Auto) 0.1 0.0-0.3 10^3/uL Basophils # (Auto) 0.0 0.0-0.1 10^3/uL Sodium Level 139 135-145 MMOL/L Potassium Level 4.1 3.6-5.0 MMOL/L Chloride Level 108 H 98-107 MMOL/L Carbon Dioxide Level 21 21-32 MMOL/L Anion Gap 10 5-14 MMOL/L Blood Urea Nitrogen 5 L 7-18 MG/DL Creatinine 0.68 0.60-1.30 MG/DL Estimat Glomerular Filtration Rate > 60 BUN/Creatinine Ratio 7 Glucose Level 116 H 70-105 MG/DL Calcium Level 9.3 8.5-10.1 MG/DL Corrected Calcium 9.2 8.5-10.1 MG/DL Total Bilirubin 0.3 0.1-1.0 MG/DL Aspartate Amino Transf (AST/SGOT) 14 5-34 U/L Alanine Aminotransferase (ALT/SGPT) 28 0-55 U/L Alkaline Phosphatase 93 40-136 U/L Total Protein 7.1 6.4-8.2 GM/DL Albumin 4.1 3.2-4.5 GM/DL Serum Test, Qualitative NEGATIVE NEGATIVE Urine Color YELLOW Urine Clarity CLEAR Urine pH 8 5-9 Urine Specific [place] 1.015 L 1.016-1.022 Urine Protein NEGATIVE NEGATIVE Urine Glucose (UA) NEGATIVE NEGATIVE Urine Ketones NEGATIVE NEGATIVE Urine Nitrite NEGATIVE NEGATIVE Urine Bilirubin NEGATIVE NEGATIVE Urine Urobilinogen NORMAL NORMAL MG/DL Urine Leukocyte Esterase 1+ H NEGATIVE Urine RBC (Auto) NEGATIVE NEGATIVE Urine RBC NONE /HPF Urine WBC 2-5 /HPF Urine Squamous Epithelial Cells 25-50 H /HPF Urine Crystals NONE /LPF Urine Bacteria FEW H /HPF Urine Casts NONE /LPF Urine Mucus NEGATIVE /LPF Urine Culture Indicated NO My Orders Orders - JENNIE CUMMINGS APRN Cbc With Automated Diff (01/06/19 10:43) Comprehensive Metabolic Panel (01/06/19 10:43) Ed Iv/Invasive Line Start (01/06/19 10:43) Hcg,Qualitative Serum (01/06/19 10:43) Ed Iv/Invasive Line Start (01/06/19 10:43) Ketorolac Injection (Toradol Injection) (01/06/19 10:45) Hyoscyamine Sl Tablet (Levsin Sl Tablet) (01/06/19 11:00) Ondansetron Injection (Zofran Injectio (01/06/19 11:15) Ct Abdomen/Pelvis W (01/06/19 12:23) Iohexol Injection (Omnipaque 350 Mg/Ml 1 (01/06/19 12:30) Received Contrast (Hold Metformin- Contr (01/06/19 12:30) Sodium Chloride Flush (Catheter Flush Sy (01/06/19 12:30) Ns (Ivpb) (Sodium Chloride 0.9% Ivpb Bag (01/06/19 12:30) Medications Given in ED Current Medications Medications Dose Ordered Sig/Angi Route Start Time Stop Time Status Last Admin Dose Admin Hyoscyamine Sulfate 0.25 mg ONCE ONCE PO 01/06/19 11:00 01/06/19 11:01 DC 01/06/19 10:55 0.25 MG Iohexol 100 ml ONCE ONCE IV 01/06/19 12:30 01/06/19 12:31 DC 01/06/19 12:47 100 ML Ketorolac Tromethamine 30 mg ONCE ONCE IVP 01/06/19 10:45 01/06/19 10:46 DC 01/06/19 10:57 30 MG Ondansetron HCl 8 mg ONCE ONCE IVP 01/06/19 11:15 01/06/19 11:16 DC 01/06/19 11:17 8 MG Sodium Chloride 100 ml ONCE ONCE IV 01/06/19 12:30 01/06/19 12:31 DC 01/06/19 12:47 80 ML Vital Signs/I&O 01/06/19 10:30 Temp 37.6 Pulse 98 Resp 15 B/P (MAP) 163/110 (127) Pulse Ox 97 O2 Delivery Room Air Departure Communication (Admissions) NAME: MARISSA DOTYPRIMITIVO Berg MED REC#: [id number] PT STATUS: REG ER : 1980 PHYSICIAN: JENNIE CUMMINGS APRN ADMIT DATE: 01/06/19/ER Draft Date of Exam:01/06/19 CT ABDOMEN/PELVIS W PROCEDURE: CT abdomen and pelvis with contrast. TECHNIQUE: Multiple contiguous axial images were obtained through the abdomen and pelvis after administration of intravenous contrast. Auto Exposure Controls were utilized during the CT exam to meet ALARA standards for radiation dose reduction. INDICATION: Lower abdominal pain with nausea. COMPARISON: 09/18/2010 FINDINGS: There is dependent atelectasis. There is a multicystic lesion at the right lung base measuring approximately 4 x 3 cm in size, although the borders are ill-defined. There does appear to be a new nodule associated with this lesion measuring up to 1 cm in diameter. Otherwise this appears stable to minimally increased since 2010. The heart is normal in size. The liver demonstrates no focal lesions. The spleen appears normal. The pancreas is normal. The adrenal glands are normal. The kidneys demonstrate no hydronephrosis or enhancing masses. Bowel loops are nondistended without obstruction. The appendix is normal. There is trace free fluid in the pelvis. Small ovarian follicles are noted. There is air along the vaginal cuff. No masses or fluid collections are seen. No acute osseous abnormality is seen. IMPRESSION: 1. No acute abnormality is seen in the abdomen or pelvis. 2. 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 There is also an associated pulmonary nodule. Consider nonemergent dedicated CT of the chest for further evaluation. Dictated on workstation # [id number] Dict: 01/06/19 1258 Trans: 01/06/19 1323 [facility] [id number] Interpreted by: MARY GRAFF MD Electronically signed by: Impression Primary Impression: Back pain Qualified Codes: M54.5 - Low back pain Additional Impression: Abdominal cramping Disposition: 01 HOME, SELF-CARE Condition: Stable Departure-Patient Inst. Decision time for Depature: 12:11 Referrals: NO,LOCAL PHYSICIAN (PCP/Family) Primary Care Physician Patient Instructions: Low Back Pain (DC) Add. Discharge Instructions: All discharge instructions reviewed with patient and/or family. Voiced unde rstanding. 1. Return to ER for any concerns 2. Follow-up with your doctor next week 3. 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 In the meantime return to ER for any concerns. Scripts Hyoscyamine Sulfate (Levsin-Sl) 0.125 Mg Tab.subl 0.125 MG SL Q4H PRN for CRAMPS, #10 TAB 0 Refills Prov: JENNIE CUMMINGS APRN 01/06/19 JENNIE CUMMINGS APRN Jan 06, 2019 10:45
[2019-01-06 10:57] LABS: BASOPHILS % (AUTO) 0 % (0-10); EOSINOPHILS # (AUTO) 0.1 10^3/uL (0.0-0.3); EOSINOPHILS % (AUTO) 1 % (0-10); HEMATOCRIT 43 % (35-52); HEMOGLOBIN 14.1 G/DL (11.5-16.0); LYMPHOCYTES # (AUTO) 1.7 X 10^3 (1.0-4.0); LYMPHOCYTES % (AUTO) 16 % (12-44); MEAN CORPUSCULAR HEMOGLOBIN 28 PG (25-34); MEAN CORPUSCULAR HGB CONC 33 G/DL (32-36); MEAN CORPUSCULAR VOLUME 85 FL (80-99); MEAN PLATELET VOLUME 10.2 FL (7.4-10.4); MONOCYTES # (AUTO) 0.4 X 10^3 (0.0-1.0); MONOCYTES % (AUTO) 3 % (0-12); NEUTROPHILS # (AUTO) 8.7 X 10^3 (1.8-7.8); NEUTROPHILS % (AUTO) 80 % (42-75); PLATELET COUNT 351 10^3/uL (130-400); RED CELL DISTRIBUTION WIDTH 15.9 % (10.0-14.5); WHITE BLOOD COUNT 10.9 10^3/uL (4.3-11.0)
[2019-01-06] MEDS ORDERED: HYOSCYAMINE 0.125 MG (LEVSIN) TAB PO ONE (11:00)
[2019-01-06] MEDS ORDERED: ONDANSETRON 4 MG/2 ML (SDV) Z0FRAN IVP ONE (11:15)
[2019-01-06 11:16] LABS: ALANINE AMINOTRANSFERASE 28 U/L (0-55); ALBUMIN 4.1 GM/DL (3.2-4.5); ALKALINE PHOSPHATASE 93 U/L (40-136); BILIRUBIN,TOTAL 0.3 MG/DL (0.1-1.0); BUN/CREATININE RATIO 7; CALCIUM 9.3 MG/DL (8.5-10.1); CARBON DIOXIDE 21 MMOL/L (21-32); CHLORIDE 108 MMOL/L (98-107); CREATININE SERUM 0.68 MG/DL (0.60-1.30); GFR ESTIMATED > 60; GLUCOSE 116 MG/DL (70-105); POTASSIUM 4.1 MMOL/L (3.6-5.0); SODIUM 139 MMOL/L (135-145); TOTAL PROTEIN 7.1 GM/DL (6.4-8.2)
[2019-01-06 11:47] LABS: BILIRUBIN,URINE NEGATIVE (NEGATIVE); CLARITY,URINE CLEAR; COLOR,URINE YELLOW; GLUCOSE, URINE (UA) NEGATIVE (NEGATIVE); KETONES,URINE NEGATIVE (NEGATIVE); LEUKOCYTE ESTERASE ,URINE 1+ (NEGATIVE); NITRITE,URINE NEGATIVE (NEGATIVE); PH,URINE 8 (5-9); PROTEIN,URINE NEGATIVE (NEGATIVE); UROBILINOGEN,URINE NORMAL (NORMAL)
[2019-01-06 11:59] LABS: BACTERIA,URINE FEW /HPF; SQUAMOUS EPITHELIAL CELL,UR 25-50 /HPF
[2019-01-06] MEDS ORDERED: HYOS0.1283 SL (12:13)
[2019-01-06] MEDS ORDERED: HOLD METFORMIN - RECEIVED CONTRAST 20 ML VIAL IV SCH (12:30)
[2019-01-06] MEDS ORDERED: CATHETER FLUSH 10 ML SYR IV PRN (12:30)
[2019-01-06] MEDS ORDERED: NS 100 ML (IVPB) BAG IV ONE (12:30)
[2019-01-06] MEDS ORDERED: IOHEXOL 350 MG/ML 100 ML (OMNIPAQUE 350) VIAL IV ONE (12:30)
--- NOTE | 2019-01-06 13:23 | Diagnostic Imaging Report ---
PROCEDURE: CT abdomen and pelvis with contrast. TECHNIQUE: Multiple contiguous axial images were obtained through the abdomen and pelvis after administration of intravenous contrast. Auto Exposure Controls were utilized during the CT exam to meet ALARA standards for radiation dose reduction. INDICATION: Lower abdominal pain with nausea. COMPARISON: 09/18/2010 FINDINGS: There is dependent atelectasis. There is a multicystic lesion at the right lung base measuring approximately 4 x 3 cm in size, although the borders are ill-defined. There does appear to be a new nodule associated with this lesion measuring up to 1 cm in diameter. Otherwise this appears stable to minimally increased since 2010. The heart is normal in size. The liver demonstrates no focal lesions. The spleen appears normal. The pancreas is normal. The adrenal glands are normal. The kidneys demonstrate no hydronephrosis or enhancing masses. Bowel loops are nondistended without obstruction. The appendix is normal. There is trace free fluid in the pelvis. Small ovarian follicles are noted. There is air along the vaginal cuff. No masses or fluid collections are seen. No acute osseous abnormality is seen. IMPRESSION: 1. No acute abnormality is seen in the abdomen or pelvis. 2. 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 There is also an associated pulmonary nodule. Consider nonemergent dedicated CT of the chest for further evaluation. Dictated by: Dictated on workstation # [id number]
[2019-01-06 14:00] VITALS: BP 126/89
== END 2019-01-06 14:01 | disposition home or self-care (01) ==
LOC: EDUNIT# 10:17 → ER 10:18
DX: M54.5 Low back pain (principal); R10.9 Unspecified abdominal pain; F41.9 Anxiety disorder, unspecified; F32.9 Major depressive disorder, single episode, unspecified; F17.210 Nicotine dependence, cigarettes, uncomplicated; Z87.442 Personal history of urinary calculi; Z87.440 Personal history of urinary (tract) infections; Z88.2 Allergy status to sulfonamides; Z88.1 Allergy status to other antibiotic agents; Z90.89 Acquired absence of other organs; Z98.51 Tubal ligation status
CPT/HCPCS: 36415; 74177; 80053; 81000; 84703; 85025

== ENCOUNTER → 2019-02-16 | Outpatient (CLI) | payer BC ==
[~2019-02-16] MED LIST changes: +CATHETER FLUSH 10 ML SYR IV PRN; +HOLD METFORMIN - RECEIVED CONTRAST 20 ML VIAL IV SCH; +HYOS0.1283 SL; +IOHEXOL 350 MG/ML 100 ML (OMNIPAQUE 350) VIAL IV ONE; +NS 100 ML (IVPB) BAG IV ONE
--- NOTE | 2019-02-16 10:15 | Diagnostic Imaging Report ---
PROCEDURE: CT chest with contrast only. TECHNIQUE: Multiple contiguous axial images were obtained through the chest after administration of intravenous contrast. Auto Exposure Controls were utilized during the CT exam to meet ALARA standards for radiation dose reduction. INDICATION: Solitary pulmonary nodule, follow-up. COMPARISON: Correlation is made with the CT abdomen and pelvis study from 01/06/2019. FINDINGS: There is an ovoid cystic lesion in the right breast measuring 3.7 x 1.9 cm. Hyperdense rounded lesion in the central left breast is noted measuring 1.1 cm. This may represent hemorrhagic cyst or fibroadenoma. No axillary lymphadenopathy is detected. No definite mediastinal or hilar lymphadenopathy is detected. No pericardial or pleural fluid is identified. Multicystic lesion in the right lung base is again noted correlating with the recent CT study. There are multicystic components approximately 4 cm in AP diameter. There is an ovoid circumscribed nodular density along the medial aspect measuring 10 mm x 5 mm. This is indeterminate. No other pulmonary parenchymal masses are identified. Upper abdomen is unremarkable. IMPRESSION: 1. Multicystic lesion at the right lung base is again noted with slight nodularity along the medial aspect. 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 Even so, follow-up would be recommended. Follow-up CT in approximately six months would be recommended to confirm stability. 2. Bilateral breast masses, likely a simple cyst on the right and perhaps a hemorrhagic cyst or fibroadenoma on the left. Diagnostic mammography and ultrasound would be useful for further evaluation. Dictated by: Dictated on workstation # [id number]
== END ==
LOC: RAD 09:00
PROVIDERS: ATTEND Nurse Practitioner Family
DX: N63.10 Unspecified lump in the right breast, unspecified quadrant (principal); N63.20 Unspecified lump in the left breast, unspecified quadrant; R91.1 Solitary pulmonary nodule
CPT/HCPCS: 71260

== ENCOUNTER → 2019-02-28 | Outpatient (CLI) | payer BC ==
[~2019-02-28] MED LIST changes: -CATHETER FLUSH 10 ML SYR IV PRN; -HOLD METFORMIN - RECEIVED CONTRAST 20 ML VIAL IV SCH; -IOHEXOL 350 MG/ML 100 ML (OMNIPAQUE 350) VIAL IV ONE; -NS 100 ML (IVPB) BAG IV ONE
--- NOTE | 2019-02-28 11:17 | Diagnostic Imaging Report ---
EXAMINATION: Digital mammogram INDICATION: Bilateral diagnostic This study was compared to the previous mammogram performed at [facility] in [place], [place] on 06/30/2016. In addition the recent CT chest exam performed at this institution on 02/16/2019 was reviewed. 3D tomographic images obtained and reviewed. The CT exam did show an ovoid cystic lesion in the right breast measuring 3.7 x 1.9 cm. On this exam there is a corresponding area of increased density in this portion of the right breast. This finding was not clearly evident on the prior exam. The CT exam also indicated a hyperdense rounded lesion in the central left breast measuring 1.1 cm. Tomographic images do show a similar sized nodular density in the 12 o'clock position roughly 3-4 cm from the nipple. I would recommend that ultrasound of both breasts be performed to better characterize these findings. The fibroglandular tissue in both breasts is heterogeneously dense. This does limit the sensitivity of this exam. There is no primary or secondary sign of malignancy noted otherwise. IMPRESSION: Ultrasound would be recommended to better characterize the roughly 4 cm oval density in the right breast and the 1 cm nodular density in the 12 o'clock position of the left breast. ACR BI-RADS Category 0: Incomplete. (Needs additional imaging evaluation). Result letter will be mailed to the patient. Note: At least 10% of breast cancer is not imaged by mammography. Dictated by: Dictated on workstation # [id number]
--- NOTE | 2019-02-28 12:03 | Diagnostic Imaging Report ---
EXAMINATION: Bilateral breast ultrasound Limited. INDICATION: Abnormal mammogram The diagnostic mammogram performed earlier today noted an oval roughly 4 cm fairly well-circumscribed density in the midportion of the right breast and a 1 cm nodular density in the 12 o'clock position of the left breast. The ultrasound examination of the right breast shows that there is a well-circumscribed 3.3 x 1.8 x 2.4 cm avascular anechoic lesion with through transmission. This would correspond to the density seen on mammogram and this finding has the appearance of a cyst. In the 12 o'clock position of the left breast roughly 1 cm from the nipple a 1.0 x 1.2 x 0.9 cm rounded avascular hypoechoic lesion was identified. This may contain a very small amount of debris. This does show through transmission I suspect that this is a cyst as well. There is no solid lesion in either breast to indicate malignancy. IMPRESSION: There are benign-appearing cysts in both breasts. There is no evidence for malignancy. ACR BI-RADS Category 1: Negative. Dictated by: Dictated on workstation # [id number]
== END ==
LOC: RAD 10:15
PROVIDERS: ATTEND Nurse Practitioner Family
DX: N60.11 Diffuse cystic mastopathy of right breast (principal); N60.12 Diffuse cystic mastopathy of left breast
CPT/HCPCS: 76642; 77066

== ENCOUNTER → 2019-05-09 | Outpatient (CLI) | payer BC ==
--- NOTE | 2019-05-09 16:13 | Diagnostic Imaging Report ---
PROCEDURE: CT urinary tract, rule out kidney stone. TECHNIQUE: Multiple contiguous axial images were obtained through the abdomen and pelvis without the use of intravenous contrast. Auto Exposure Controls were utilized during the CT exam to meet ALARA standards for radiation dose reduction. INDICATION: Abdominal pain. Increased urinary frequency. COMPARISON: 02/16/2019 FINDINGS: Included portions of the lung bases again show multicystic change to the right lung base. There is also ellipsoid pulmonary nodule that measures 1 x 0.5 cm. This is stable compared to 02/16/2019. CT ABDOMEN: Nonobstructive renal calculus is noted within the superior pole of the right kidney. Ureters cannot be followed in their entirety, but no calculi are seen along the expected course of either ureter. Additionally, there is no hydroureteronephrosis or other evidence of obstruction on either side. No renal calculi are seen on the left. No renal masses are identified on this noncontrast exam. The adrenal glands, spleen, pancreas, and liver have an unremarkable noncontrast CT appearance. Small bowel loops are nondistended. Normal appendix is identified. There is no loculated fluid collection, free fluid, nor free air. No abnormal mesenteric or retroperitoneal adenopathy is seen. Osseous structures show no acute abnormalities. CT PELVIS: Urinary bladder is unopacified. No calculi are seen within the urinary bladder. There is no loculated fluid collection, free fluid, nor free air within the pelvis. No abnormal pelvic adenopathy is seen. Osseous structures show no acute abnormalities. IMPRESSION: 1. Nonobstructive right renal calculus. 2. No ureteral calculi, hydroureteronephrosis, or other evidence of obstruction. 3. Cystic change with stable nodular soft tissue density of the right lower lobe. Six month follow-up is recommended to ensure stability. Dictated by: Dictated on workstation # [id number]
== END ==
LOC: RAD 15:10
PROVIDERS: ATTEND Registered Nurse
DX: N20.0 Calculus of kidney (principal); R35.0 Frequency of micturition; M54.9 Dorsalgia, unspecified; R10.9 Unspecified abdominal pain; R91.1 Solitary pulmonary nodule
CPT/HCPCS: 74176

== ENCOUNTER → 2019-06-06 | Outpatient (CLI) | payer BC ==
--- NOTE | 2019-06-06 15:14 | Diagnostic Imaging Report ---
EXAMINATION: Supine abdomen at 2:38 p.m. INDICATION: Right renal stone. FINDINGS: The previous CT abdomen/pelvis exam of 05/09/2019 noted a small nonobstructive calculus overlying the right kidney and failed to show any sign of obstruction of either collecting system by a calculus. On this study, there is no clear evidence for a calculus overlying either kidney. However, both kidneys are partially obscured by bowel gas and fecal material. There is no evidence for a calculus overlying the pelvis either. The bowel gas pattern is nonspecific. There is no evidence for a bowel obstruction. There is a moderate amount of fecal material throughout the colon. There is no mass or organomegaly appreciated. The osseous structures are intact. IMPRESSION: 1. There is no evidence for nephrolithiasis, although both kidneys are obscured by bowel gas and fecal material. 2. There is no sign of a calculus overlying the pelvis. Dictated by: Dictated on workstation # [id number]
== END ==
LOC: RAD 14:20
PROVIDERS: ATTEND Urology
DX: N20.0 Calculus of kidney (principal)
CPT/HCPCS: 74018

== ENCOUNTER → 2019-06-30 | Outpatient (CLI) | payer BC ==
[~2019-06-30] MED LIST changes: +HOLD METFORMIN - RECEIVED CONTRAST 20 ML VIAL IV SCH; +IOHEXOL 350 MG/ML 100 ML (OMNIPAQUE 350) VIAL IV ONE; +NS 100 ML (IVPB) BAG IV ONE
[2019-06-30 08:17] LABS: BUN/CREATININE RATIO 10; CREATININE SERUM 0.73 MG/DL (0.60-1.30); GFR ESTIMATED > 60
--- NOTE | 2019-06-30 09:23 | Diagnostic Imaging Report ---
PROCEDURE: CT chest with contrast only. TECHNIQUE: Multiple contiguous axial images were obtained through the chest after administration of intravenous contrast. Auto Exposure Controls were utilized during the CT exam to meet ALARA standards for radiation dose reduction. INDICATION: Dyspnea COMPARISON: 02/16/2019 and 09/18/2010 FINDINGS: No significant adenopathy within the chest. No aneurysmal dilatation of the thoracic aorta. The heart is within normal limits in size. No pericardial effusion. No pleural effusion. Nodules noted within the bilateral breasts are again identified and prior mammography and ultrasound demonstrated cysts. No pneumothorax. 5 mm subpleural left lower lobe pulmonary nodules unchanged since 2010, and benign. Ovoid cystic structure is again identified within the right lung base. This measures up to 3.3 cm in AP dimension, which is relatively similar to the prior examination, not simply changed since 2010. A 0.9 x 0.5 cm ovoid solid pulmonary nodule is present at this location, which is unchanged from the prior examination. No new pulmonary nodule. The visualized upper abdomen is unremarkable. No acute osseous abnormality. IMPRESSION: No acute abnormality. Stable indeterminate 1 cm ovoid pulmonary nodule within the right lung base. This is stable for 4 months at this time. Recommend a followup CT of the chest in 6-12 month to reevaluate. 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 Dictated by: Dictated on workstation # [id number]
== END ==
LOC: RT 07:37
PROVIDERS: ATTEND Nurse Practitioner Family
DX: R91.8 Other nonspecific abnormal finding of lung field (principal); R06.00 Dyspnea, unspecified; Z72.0 Tobacco use
CPT/HCPCS: 36415; 71260; 82565; 84520

== ENCOUNTER → 2019-08-18 | Outpatient (CLI) | payer BC ==
[~2019-08-18] MED LIST changes: +CATHETER FLUSH 10 ML SYR IV PRN
[2019-08-18 10:02] LABS: BUN/CREATININE RATIO 8; CREATININE SERUM 0.76 MG/DL (0.60-1.30); GFR ESTIMATED > 60
--- NOTE | 2019-08-18 11:15 | Diagnostic Imaging Report ---
PROCEDURE: CT chest with contrast only. TECHNIQUE: Multiple contiguous axial images were obtained through the chest after administration of intravenous contrast. Auto Exposure Controls were utilized during the CT exam to meet ALARA standards for radiation dose reduction. INDICATION: Dyspnea, chest pain, history of tobacco use. CORRELATION: 06/30/2019, 02/16/2019 FINDINGS: There is no significant mediastinal, axillary and/or hilar lymphadenopathy. The heart size is unremarkable. Thoracic aorta normal in contour. Bilateral breast masses are present. Mildly prominent but not pathologically enlarged axillary lymph nodes. Visualized thyroid gland appears unremarkable. The lung dur[place] are clear of infiltrate. Multiseptated cystic area at the right lung base, stable. 10 x 4 mm area of nodularity just medial to this area unchanged. 4-5 mm nodule lateral left lower lobe also stable. The visualized portions of the upper abdomen are unremarkable. Stable, benign appearing sclerotic foci of the manubrium and sternum. IMPRESSION: Stable right lower lobe pulmonary nodule. This located just adjacent to multiseptated cystic region also appears unchanged. Follow-up CT imaging in approximately 6-12 months is recommended for reassessment. Dictated by: Dictated on workstation # [id number]
== END ==
LOC: RAD 09:25
PROVIDERS: ATTEND Nurse Practitioner Family
DX: R91.1 Solitary pulmonary nodule (principal); J98.4 Other disorders of lung; R07.9 Chest pain, unspecified; R06.00 Dyspnea, unspecified; Z72.0 Tobacco use
CPT/HCPCS: 36415; 71260; 82565; 84520

== ENCOUNTER → 2019-08-25 | Outpatient (CLI) | payer BC ==
[~2019-08-25] MED LIST changes: -CATHETER FLUSH 10 ML SYR IV PRN; -HOLD METFORMIN - RECEIVED CONTRAST 20 ML VIAL IV SCH; -IOHEXOL 350 MG/ML 100 ML (OMNIPAQUE 350) VIAL IV ONE; -NS 100 ML (IVPB) BAG IV ONE; +RT-ALBUTEROL SULF 2.5 MG/3 ML PRE-MIX VIAL INH ONE; +RT-ALBUTEROL SULF 2.5 MG/3 ML PRE-MIX VIAL ONE
== END ==
LOC: RT 15:16
PROVIDERS: ATTEND Nurse Practitioner Family
DX: R06.00 Dyspnea, unspecified (principal); R91.8 Other nonspecific abnormal finding of lung field; Z72.0 Tobacco use
CPT/HCPCS: 94060; 94726; 94729

== ENCOUNTER → 2019-10-27 | Outpatient (CLI) | payer BC ==
[~2019-10-27] MED LIST changes: +CATHETER FLUSH 10 ML SYR IV PRN; +HOLD METFORMIN - RECEIVED CONTRAST 20 ML VIAL IV SCH; +IOHEXOL 350 MG/ML 100 ML (OMNIPAQUE 350) VIAL IV ONE; +NS 100 ML (IVPB) BAG IV ONE; -RT-ALBUTEROL SULF 2.5 MG/3 ML PRE-MIX VIAL INH ONE; -RT-ALBUTEROL SULF 2.5 MG/3 ML PRE-MIX VIAL ONE
--- NOTE | 2019-10-27 15:43 | Diagnostic Imaging Report ---
INDICATION: Right lung nodule. EXAMINATION: CT chest obtained with IV contrast and compared to 08/18/2019, 06/30/2019, and 02/16/2019. TECHNIQUE: Multiple contiguous axial images were obtained through the chest after administration of intravenous contrast. Auto Exposure Controls were utilized during the CT exam to meet ALARA standards for radiation dose reduction. FINDINGS: There are no enlarged mediastinal or hilar nodes. There are no enlarged axillary nodes or chest wall lesions. There is no pleural or pericardial effusion. There is again noted to be a multicystic lesion in the right lower lobe anteriorly which is stable and unchanged compared to the prior study. The adjacent solid nodular density measures 10 x 4 mm, and has not changed compared to the previous study. Small nodule in the left lower lobe laterally measures about 4 mm, and appears similar to previous studies. There are no new pulmonary parenchymal lesions seen elsewhere. Visualized portions of the upper abdomen are unremarkable. IMPRESSION: Stable 10 x 4 mm right lower lobe ovoid pulmonary nodule, unchanged compared to previous studies back to 02/16/2019. Recommend follow-up study in about 6-12 months. This should be followed for a total of two years. Adjacent multicystic area in the right lower lobe is also stable and unchanged, may be congenital. Dictated by: Dictated on workstation # [id number]
== END ==
LOC: RAD 13:52
PROVIDERS: ATTEND Family Medicine
DX: J98.4 Other disorders of lung (principal); R91.1 Solitary pulmonary nodule
CPT/HCPCS: 71260

== ENCOUNTER 2019-11-12 13:43 | Emergency (ER) | payer BC ==
[~2019-11-12] VITALS: Ht 170 cm; Wt 86.9 kg
[~2019-11-12 13:43] MED LIST changes: -CATHETER FLUSH 10 ML SYR IV PRN; -HOLD METFORMIN - RECEIVED CONTRAST 20 ML VIAL IV SCH; -IOHEXOL 350 MG/ML 100 ML (OMNIPAQUE 350) VIAL IV ONE; -NS 100 ML (IVPB) BAG IV ONE
[2019-11-12] MEDS ORDERED: METO50TA7 (13:58)
[2019-11-12] MEDS ORDERED: ESCI10TA55 (13:58)
[2019-11-12] MEDS ORDERED: ATOR40TA70 (13:58)
[2019-11-12] MEDS ORDERED: FLUT1DIS26 (13:58)
[2019-11-12] MEDS ORDERED: PARO40TA3 (13:58)
[2019-11-12] MEDS ORDERED: ONDANSETRON 4 MG/2 ML (SDV) Z0FRAN IVP ONE (14:00)
[2019-11-12] MEDS ORDERED: ASPIRIN 81 MG CHEW (CHILDREN'S ASA) PO ONE (14:00)
[2019-11-12 14:09] LABS: BASOPHILS # (AUTO) 0.1 10^3/uL (0.0-0.1); BASOPHILS % (AUTO) 1 % (0-10); EOSINOPHILS # (AUTO) 0.1 10^3/uL (0.0-0.3); EOSINOPHILS % (AUTO) 1 % (0-10); HEMATOCRIT 43 % (35-52); HEMOGLOBIN 14.4 G/DL (11.5-16.0); LYMPHOCYTES # (AUTO) 3.7 X 10^3 (1.0-4.0); LYMPHOCYTES % (AUTO) 47 % (12-44); MEAN CORPUSCULAR HEMOGLOBIN 29 PG (25-34); MEAN CORPUSCULAR HGB CONC 34 G/DL (32-36); MEAN CORPUSCULAR VOLUME 86 FL (80-99); MEAN PLATELET VOLUME 10.7 FL (7.4-10.4); MONOCYTES # (AUTO) 0.7 X 10^3 (0.0-1.0); MONOCYTES % (AUTO) 9 % (0-12); NEUTROPHILS # (AUTO) 3.4 X 10^3 (1.8-7.8); NEUTROPHILS % (AUTO) 43 % (42-75); PLATELET COUNT 309 10^3/uL (130-400); RED CELL DISTRIBUTION WIDTH 14.9 % (10.0-14.5)
[2019-11-12 14:15] LABS: ALBUMIN 4.1 GM/DL (3.2-4.5); CHLORIDE 109 MMOL/L (98-107); POTASSIUM 3.9 MMOL/L (3.6-5.0); SODIUM 140 MMOL/L (135-145)
[2019-11-12 14:16] LABS: CALCIUM 9.3 MG/DL (8.5-10.1)
[2019-11-12 14:17] LABS: GLUCOSE 105 MG/DL (70-105); TOTAL PROTEIN 7.3 GM/DL (6.4-8.2)
[2019-11-12 14:18] LABS: CARBON DIOXIDE 21 MMOL/L (21-32)
[2019-11-12 14:19] LABS: BILIRUBIN,TOTAL 0.7 MG/DL (0.1-1.0)
[2019-11-12 14:20] LABS: BILIRUBIN,URINE NEGATIVE (NEGATIVE); CLARITY,URINE CLEAR; COLOR,URINE YELLOW; GLUCOSE, URINE (UA) NEGATIVE (NEGATIVE); KETONES,URINE NEGATIVE (NEGATIVE); LEUKOCYTE ESTERASE ,URINE NEGATIVE (NEGATIVE); NITRITE,URINE NEGATIVE (NEGATIVE); PH,URINE 7.5 (5-9); PROTEIN,URINE NEGATIVE (NEGATIVE)
--- NOTE | 2019-11-12 14:20 | ED Chest Pain ---
General Chief Complaint: Chest Wall Stated Complaint: CHEST PAIN Nursing Triage Note: intermittant left sided chest wall pain since 11/11/2019. nausea, "green urine" today Nursing Sepsis Screen: No Definite Risk Source: patient Exam Limitations: no limitations History of Present Illness Date Seen by Provider: Nov 12, 2019 Time Seen by Provider: 13:51 Initial Comments Well appearing 38 yo female. C/O sharp chest pain located left of the sternum. Pain began around 0200 this am, worse with lying, and resolved spontaneously. Chest pain return approximately one hour [employer] and was accompanied with nausea/vomiting and radiated into left side of chest wall/neck. Timing/Duration: intermittent Severity/Quality: mild Radiation: neck Activities at Onset: none Modifying Factors: improves with lying down Associated Symptoms: abdominal pain, nausea/vomiting Allergies and Home Medications Allergies Coded Allergies: sulfamethoxazole (Verified Allergy, Unknown, 01/06/19) PT REPORTS TURNING RED trimethoprim (Verified Allergy, Unknown, 01/06/19) PT REPORTS TURNING RED Patient Home Medication List Home Medication List Reviewed: Yes Review of Systems Review of Systems Constitutional: see HPI EENTM: No Symptoms Reported Respiratory: No Symptoms Reported Cardiovascular: See HPI Gastrointestinal: See HPI Genitourinary: See HPI Musculoskeletal: no symptoms reported Skin: no symptoms reported Psychiatric/Neurological: Anxiety Endocrine: No Symptoms Reported Hematologic/Lymphatic: No Symptoms Reported Past Exrawlp-Vikjfw-Gfptqg Hx Patient Social History Alcohol Use: Denies Use Recreational Drug Use: No Smoking Status: Current Everyday Smoker Type Used: Cigarettes 2nd Hand Smoke Exposure: Yes Recent Foreign Travel: No Contact w/Someone Who Travel: No Recent Infectious Disease Expo: No Recent Hopitalizations: No Physical Abuse: No Sexual Abuse: No Mistreated: No Fear: No Immunizations Up To Date Tetanus Booster (TDap): Unknown PED Vaccines UTD: Yes Seasonal Allergies Seasonal Allergies: Yes Past Medical History Surgeries: Yes Adenoidectomy, Tonsillectomy, Tubal Ligation Respiratory: No Cardiac: Yes High Cholesterol, Hypertension Neurological: No : No Reproductive Disorders: No [employer] History: Tubal Ligation Sexually Transmitted Disease: Yes (HPV) Genitourinary: Yes Kidney Stones, UTI-Chronic Gastrointestinal: No Musculoskeletal: Yes (SCIATICA) Endocrine: No HEENT: No Cancer: No Psychosocial: Yes Anxiety, Depression Integumentary: No Blood Disorders: Yes Physical Exam Vital Signs Vital Signs - First Documented 11/12/19 13:47 Temp 36.3 Pulse 86 Resp 21 B/P (MAP) 173/102 (125) Pulse Ox 99 O2 Delivery Room Air Capillary Refill : Less Than 3 Seconds Height, Weight, BMI Height: 5'6.00" Weight: 180lbs. oz. [id number]; 30.00 BMI Method:Stated General Appearance: No Apparent Distress HEENT: Normal ENT Inspection, Pharynx Normal Neck: Full Range of Motion, Other (tender over left lateral trapezus w/palpation ) Respiratory: Normal Breath Sounds, No Accessory Muscle Use Cardiovascular: Regular Rate, Rhythm, Normal Peripheral Pulses Gastrointestinal: Normal Bowel Sounds, Soft, Other (Suprapubic tenderness ) Extremity: Normal Capillary Refill, Normal Inspection Neurologic/Psychiatric: Alert, Oriented x3 Skin: Normal Color, Warm/Dry Progress/Results/Core Measures Results/Orders Lab Results Laboratory Tests Test 11/12/19 13:51 11/12/19 14:00 11/12/19 15:22 Range/Units White Blood Count 8.0 4.3-11.0 10^3/uL Red Blood Count 4.98 4.35-5.85 10^6/uL Hemoglobin 14.4 11.5-16.0 G/DL Hematocrit 43 35-52 % Mean Corpuscular Volume 86 80-99 FL Mean Corpuscular Hemoglobin 29 25-34 PG Mean Corpuscular Hemoglobin Concent 34 32-36 G/DL Red Cell Distribution Width 14.9 H 10.0-14.5 % Platelet Count 309 130-400 10^3/uL Mean Platelet Volume 10.7 H 7.4-10.4 FL Neutrophils (%) (Auto) 43 42-75 % Lymphocytes (%) (Auto) 47 H 12-44 % Monocytes (%) (Auto) 9 0-12 % Eosinophils (%) (Auto) 1 0-10 % Basophils (%) (Auto) 1 0-10 % Neutrophils # (Auto) 3.4 1.8-7.8 X 10^3 Lymphocytes # (Auto) 3.7 1.0-4.0 X 10^3 Monocytes # (Auto) 0.7 0.0-1.0 X 10^3 Eosinophils # (Auto) 0.1 0.0-0.3 10^3/uL Basophils # (Auto) 0.1 0.0-0.1 10^3/uL Sodium Level 140 135-145 MMOL/L Potassium Level 3.9 3.6-5.0 MMOL/L Chloride Level 109 H 98-107 MMOL/L Carbon Dioxide Level 21 21-32 MMOL/L Anion Gap 10 5-14 MMOL/L Blood Urea Nitrogen 3 L 7-18 MG/DL Creatinine 0.66 0.60-1.30 MG/DL Estimat Glomerular Filtration Rate > 60 BUN/Creatinine Ratio 5 Glucose Level 105 70-105 MG/DL Calcium Level 9.3 8.5-10.1 MG/DL Corrected Calcium 9.2 8.5-10.1 MG/DL Magnesium Level 2.0 1.6-2.4 MG/DL Total Bilirubin 0.7 0.1-1.0 MG/DL Aspartate Amino Transf (AST/SGOT) 11 5-34 U/L Alanine Aminotransferase (ALT/SGPT) 21 0-55 U/L Alkaline Phosphatase 89 40-136 U/L Myoglobin 21.0 10.0-92.0 NG/ML Troponin I < 0.028 < 0.028 <0.028 NG/ML C-Reactive Protein High Sensitivity 0.13 0.00-0.50 MG/DL Total Protein 7.3 6.4-8.2 GM/DL Albumin 4.1 3.2-4.5 GM/DL Lipase 19 8-78 U/L Urine Color YELLOW Urine Clarity CLEAR Urine pH 7.5 5-9 Urine Specific [place] <=1.005 1.016-1.022 Urine Protein NEGATIVE NEGATIVE Urine Glucose (UA) NEGATIVE NEGATIVE Urine Ketones NEGATIVE NEGATIVE Urine Nitrite NEGATIVE NEGATIVE Urine Bilirubin NEGATIVE NEGATIVE Urine Urobilinogen 0.2 < = 1.0 MG/DL Urine Leukocyte Esterase NEGATIVE NEGATIVE Urine RBC (Auto) NEGATIVE NEGATIVE Urine RBC NONE /HPF Urine WBC NONE /HPF Urine Squamous Epithelial Cells 2-5 /HPF Urine Crystals NONE /LPF Urine Bacteria NEGATIVE /HPF Urine Casts NONE /LPF Urine Mucus NEGATIVE /LPF Urine Culture Indicated NO My Orders Orders - MANINDER JAIN APRN Ondansetron Injection (Zofran Injectio (11/12/19 14:00) Cbc With Automated Diff (11/12/19 14:00) Magnesium (11/12/19 14:00) Chest 1 View, Ap/Pa Only (11/12/19 14:00) Ekg Tracing (11/12/19 14:00) Comprehensive Metabolic Panel (11/12/19 14:00) Myoglobin Serum (11/12/19 14:00) O2 (11/12/19 14:00) Monitor-Rhythm Ecg Trace Only (11/12/19 14:00) Ed Iv/Invasive Line Start (11/12/19 14:00) Lipase (11/12/19 14:00) Troponin I (11/12/19 14:00) Aspirin Chewable Tablet (Baby Aspirin Ch (11/12/19 14:00) Ua Culture If Indicated (11/12/19 14:00) Hs C Reactive Protein (11/12/19 14:25) Ketorolac Injection (Toradol Injection) (11/12/19 15:00) Troponin I (11/12/19 15:51) Ketorolac Injection (Toradol Injection) (11/12/19 15:15) Medications Given in ED Current Medications Medications Dose Ordered Sig/Angi Route Start Time Stop Time Status Last Admin Dose Admin Aspirin 324 mg ONCE ONCE PO 11/12/19 14:00 11/12/19 14:04 DC 11/12/19 14:12 324 MG Ketorolac Tromethamine 15 mg ONCE ONCE IVP 11/12/19 15:15 11/12/19 15:16 DC 11/12/19 15:16 15 MG Ondansetron HCl 4 mg ONCE ONCE IVP 11/12/19 14:00 11/12/19 14:04 DC 11/12/19 14:12 4 MG Vital Signs/I&O 11/12/19 13:47 Temp 36.3 Pulse 86 Resp 21 B/P (MAP) 173/102 (125) Pulse Ox 99 O2 Delivery Room Air Blood Pressure Mean: 125 Departure Communication (Admissions) Improved chest wall pain with Toradol inj from 08/12 to 05/15. Impression Primary Impression: Chest wall pain Disposition: 01 HOME, SELF-CARE Condition: Improved Departure-Patient Inst. Referrals: [facility] (PCP/Family) Primary Care Physician Add. Discharge Instructions: Plan: 1. May take Ibuprofen as needed for pain per package instruction. 2. Take muscle relaxer as directed. 3. Return to ER for any new or concerning symptoms. All discharge instructions reviewed with patient and/or family. Voiced understanding. MANINDER JAIN PHARMACOGENETICIST Nov 12, 2019 14:20
[2019-11-12 14:21] LABS: ALKALINE PHOSPHATASE 89 U/L (40-136); CREATININE SERUM 0.66 MG/DL (0.60-1.30); GFR ESTIMATED > 60
[2019-11-12 14:22] LABS: BUN/CREATININE RATIO 5
--- NOTE | 2019-11-12 14:22 | Diagnostic Imaging Report ---
Portable erect AP chest at 2:17. Indication: Chest pain The heart size is within normal limits and stable when compared to 12/21/2018. The lungs are clear. There is no sign of failure, pneumonia or pleural effusion. The mediastinum is not widened. The osseous structures are intact. Impression: There is no evidence for active disease. Dictated by: Dictated on workstation # [id number]
[2019-11-12 14:24] LABS: ALANINE AMINOTRANSFERASE 21 U/L (0-55)
[2019-11-12 14:25] LABS: LIPASE 19 U/L (8-78)
[2019-11-12 14:44] LABS: BACTERIA,URINE NEGATIVE /HPF
[2019-11-12] MEDS ORDERED: KETOROLAC 15 MG/ML VIAL IVP ONE (15:00)
[2019-11-12] MEDS ORDERED: KETOROLAC 30 MG/ML VIAL IVP ONE (15:15)
[2019-11-12] MEDS ORDERED: CYCL10TA9 PO (16:15)
[2019-11-12] MEDS ORDERED: CYCL5TAB PO (16:19)
[2019-11-12 16:21] VITALS: BP 120/81
== END 2019-11-12 16:21 | disposition home or self-care (01) ==
LOC: EDUNIT# 13:43 → ER 13:44
DX: R07.89 Other chest pain (principal); F17.210 Nicotine dependence, cigarettes, uncomplicated; Z88.2 Allergy status to sulfonamides; Z88.1 Allergy status to other antibiotic agents
CPT/HCPCS: 36415; 71045; 80053; 81000; 83690; 83735; 83874; 84484; 85025; 86141; 93005; 93041

== ENCOUNTER 2019-12-14 13:29 | Emergency (ER) | payer BC ==
[~2019-12-14] VITALS: Ht 67 cm; Wt 86.0 kg
[~2019-12-14 13:29] MED LIST changes: +ATOR40TA70; +CYCL10TA9 PO; +CYCL5TAB PO; +ESCI10TA55; +FLUT1DIS26; +METO50TA7; +PARO40TA3
[2019-12-14] MEDS ORDERED: NS IV 1000 ML 1,000 ML IV SCH (14:34)
--- NOTE | 2019-12-14 14:43 | ED Headache ---
General Chief Complaint: Respiratory Problems Stated Complaint: COUGH,SOB,SORE THROAT,CHEST PAIN Source: patient Exam Limitations: no limitations History of Present Illness Date Seen by Provider: Dec 14, 2019 Time Seen by Provider: 14:21 Initial Comments The patient presents ER by private conveyance with chief complaint that for 8 days she's had a migraine headache. She has a history of migraines. Tylenol or broken has not taken care of. She does not use abortifacient's. She does follow Dr. Mooney. She does not use anything to prevent migraines. She's also been for the past 3 or 4 days having a nonproductive cough malaise, body aches no fevers but she does have nausea vomiting and loss of sense of smell and taste and nasal congestion. No diarrhea or constipation. No known sick contacts. She does smoke cigarettes. She denies alcohol or recreational drugs. She does not have a history of lung disorders. She says she feels a little short of air and has had some tightness in her chest since 6:00 this morning, 8 hours ago worse with deep inspiration or coughing. No personal history of coronary disease or diabetes but she does smoke have hypertension and hyperlipidemia and her father in his mid 50s from heart attack. Allergies and Home Medications Allergies Coded Allergies: sulfamethoxazole (Verified Allergy, Unknown, 01/06/19) PT REPORTS TURNING RED trimethoprim (Verified Allergy, Unknown, 01/06/19) PT REPORTS TURNING RED Home Medications Cyclobenzaprine HCl 10 Mg Tablet, 5 MG PO Q8H PRN for SPASMS Prescribed by: MANINDER JAIN on 11/12/192053 Cyclobenzaprine HCl 5 Mg Tablet, 5 MG PO TID Prescribed by: MANINDER JAIN on 11/12/19 1619 Patient Home Medication List Home Medication List Reviewed: Yes Review of Systems Review of Systems Constitutional: No chills, No fever; malaise Eyes: Denies Blindness, Denies Drainage Ears, Nose, Mouth, Throat: denies ear pain, denies ear discharge Respiratory: cough; No hemoptysis, No phlegm; short of breath; No wheezing Cardiovascular: chest pain Gastrointestinal: No abdominal pain, No constipation, No diarrhea; nausea, vomiting Genitourinary: No discharge, No dysuria Musculoskeletal: No back pain, No joint pain All Other Systems Reviewed Negative Unless Noted: Yes Past Dafqydq-Oofdkb-Wquusi Hx Patient Social History Alcohol Use: Denies Use Recreational Drug Use: No Smoking Status: Current Everyday Smoker Type Used: Cigarettes 2nd Hand Smoke Exposure: Yes Recent Hopitalizations: No Immunizations Up To Date Tetanus Booster (TDap): Unknown PED Vaccines UTD: Yes Seasonal Allergies Seasonal Allergies: Yes Past Medical History Surgeries: Yes Adenoidectomy, Tonsillectomy, Tubal Ligation Respiratory: No Cardiac: Yes High Cholesterol, Hypertension Neurological: No Reproductive Disorders: No [employer]ANT History: Tubal Ligation Sexually Transmitted Disease: Yes (HPV) Genitourinary: Yes Kidney Stones, UTI-Chronic Gastrointestinal: No Musculoskeletal: Yes (SCIATICA) Endocrine: No HEENT: No Cancer: No Psychosocial: Yes Anxiety, Depression Integumentary: No Blood Disorders: Yes Physical Exam Vital Signs Vital Signs - First Documented 12/14/19 14:50 Temp 37.0 Pulse 84 B/P (MAP) 183/97 (125) Pulse Ox 100 O2 Delivery Room Air Capillary Refill : Height, Weight, BMI Height: 5'6.00" Weight: 180lbs. oz. 81.924641po; 30.00 BMI Method:Stated General Appearance: WD/WN, mild distress HEENT: PERRL/EOMI, normal ENT inspection, TMs normal, pharynx normal Neck: full range of motion, supple, normal inspection Cardiovascular: normal peripheral pulses, regular rate, rhythm Respiratory: lungs clear, normal breath sounds, no respiratory distress, no accessory muscle use Gastrointestinal: normal bowel sounds, non tender, soft Extremities: normal range of motion, non-tender, normal inspection Psychiatric: alert, oriented x 3 Crainal Nerves: normal hearing, normal speech, PERRL Motor/Sensory: no motor deficit, no sensory deficit Skin: normal color, warm/dry Progress/Results/Core Measures Results/Orders Lab Results Laboratory Tests Test 12/14/19 14:40 12/14/19 14:45 12/14/19 15:03 12/14/19 15:47 Range/Units White Blood Count 7.4 4.3-11.0 10^3/uL Red Blood Count 4.94 4.35-5.85 10^6/uL Hemoglobin 14.1 11.5-16.0 G/DL Hematocrit 42 35-52 % Mean Corpuscular Volume 85 80-99 FL Mean Corpuscular Hemoglobin 29 25-34 PG Mean Corpuscular Hemoglobin Concent 34 32-36 G/DL Red Cell Distribution Width 14.8 H 10.0-14.5 % Platelet Count 245 130-400 10^3/uL Mean Platelet Volume 11.8 H 7.4-10.4 FL Neutrophils (%) (Auto) 47 42-75 % Lymphocytes (%) (Auto) 44 12-44 % Monocytes (%) (Auto) 8 0-12 % Eosinophils (%) (Auto) 1 0-10 % Basophils (%) (Auto) 0 0-10 % Neutrophils # (Auto) 3.5 1.8-7.8 X 10^3 Lymphocytes # (Auto) 3.2 1.0-4.0 X 10^3 Monocytes # (Auto) 0.6 0.0-1.0 X 10^3 Eosinophils # (Auto) 0.1 0.0-0.3 10^3/uL Basophils # (Auto) 0.0 0.0-0.1 10^3/uL Prothrombin Time 13.0 12.2-14.7 SEC INR Comment 0.9 0.8-1.4 Activated Partial Thromboplast Time 28 24-35 SEC Coronavirus 2019 (FELA) Negative Negative Sodium Level 139 135-145 MMOL/L Potassium Level 4.1 3.6-5.0 MMOL/L Chloride Level 107 98-107 MMOL/L Carbon Dioxide Level 23 21-32 MMOL/L Anion Gap 9 5-14 MMOL/L Blood Urea Nitrogen 4 L 7-18 MG/DL Creatinine 0.64 0.60-1.30 MG/DL Estimat Glomerular Filtration Rate > 60 BUN/Creatinine Ratio 6 Glucose Level 93 70-105 MG/DL Calcium Level 9.0 8.5-10.1 MG/DL Corrected Calcium 9.2 8.5-10.1 MG/DL Magnesium Level 2.0 1.6-2.4 MG/DL Total Bilirubin 0.6 0.1-1.0 MG/DL Aspartate Amino Transf (AST/SGOT) 30 5-34 U/L Alanine Aminotransferase (ALT/SGPT) 37 0-55 U/L Alkaline Phosphatase 77 40-136 U/L Myoglobin 22.3 10.0-92.0 NG/ML Troponin I < 0.028 <0.028 NG/ML Total Protein 6.9 6.4-8.2 GM/DL Albumin 3.8 3.2-4.5 GM/DL Serum Test, Qualitative NEGATIVE NEGATIVE Micro Results Microbiology 12/14/19 Influenza Types A,B Antigen (JOLYNN) - Final, Complete My Orders Orders - MILLA HOFFMAN Continuous Ekg Monitoring (12/14/19 13:42) Ekg Tracing (12/14/19 13:42) Cbc With Automated Diff (12/14/19 14:34) Magnesium (12/14/19 14:34) Chest 1 View, Ap/Pa Only (12/14/19 14:34) Comprehensive Metabolic Panel (12/14/19 14:34) Myoglobin Serum (12/14/19 14:34) Protime With Inr (12/14/19 14:34) Partial Thromboplastin Time (12/14/19 14:34) O2 (12/14/19 14:34) Ed Iv/Invasive Line Start (12/14/19 14:34) Troponin I (12/14/19 14:34) Aspirin Chewable Tablet (Baby Aspirin Ch (12/14/19 14:45) Coronavirus Sars-Cov-2 So 2018 (12/14/19 14:34) Influenza A And B Antigens (12/14/19 14:34) Promethazine Injection (Phenergan Injec (12/14/19 14:45) Diphenhydramine Injection (Benadryl Inje (12/14/19 14:45) Ed Iv/Invasive Line Start (12/14/19 14:34) Ns Iv 1000 Ml (Sodium Chloride 0.9%) (12/14/19 14:34) Hcg,Qualitative Serum (12/14/19 14:38) Covid 19 Inhouse Test (12/14/19 15:20) Medications Given in ED Current Medications Medications Dose Ordered Sig/Angi Route Start Time Stop Time Status Last Admin Dose Admin Aspirin 324 mg ONCE ONCE PO 12/14/19 14:45 12/14/19 14:46 DC 12/14/19 14:43 324 MG Diphenhydramine HCl 25 mg ONCE ONCE IVP 12/14/19 14:45 12/14/19 14:46 DC 12/14/19 14:44 25 MG Promethazine HCl 25 mg ONCE ONCE IVP 12/14/19 14:45 12/14/19 14:46 DC 12/14/19 14:43 25 MG Vital Signs/I&O 12/14/19 14:50 Temp 37.0 Pulse 84 B/P (MAP) 183/97 (125) Pulse Ox 100 O2 Delivery Room Air Progress Progress Note #1: Time: 14:48 Progress Note Patient states she presents primarily for her headache. Her nausea vomiting seems to be coming from that. She has a viral upper or lower respiratory tract infection. She does have some significant risk factors for coronary disease but her chest pain on clinical exam appears to be more pleuritic in nature. A single troponin 8 hours after the start of her chest tightness should be more than sufficient to rule out significant coronary disease today. we are going to give her referral to the manager [facility] for outpatient follow-up in the next couple weeks when she is feeling better. An outpatient COVID 19 swab has been obtained. Influence of swab will be obtained. Chest x-ray and labs including troponin to help rule out pneumonia. Her lung sounds are clear and I do not think she will benefit from a beta adrenergist. For headache we'll give her some Phenergan and Benadryl IV as well as a liter of saline. If her serum is negative and her troponin is negative then we will give her 30 mg IV Toradol. Progress Note #2: Time: 16:40 Progress Note No troponin. We'll encourage to follow-up with cardiology outpatient. Toradol for her headache. Initial ECG Impression Date: Dec 14, 2019 Initial ECG Impression Time: 14:25 Initial ECG Rate: 71 Initial ECG Rhythm: Normal Sinus Initial ECG Intervals: Normal Initial ECG Impression: Normal Initial ECG Comparisson: No Previous ECG Available Comment Normal sinus rhythm without clinically relevant ST elevation or depression. Diagnostic Imaging Diagonstic Imaging: Xray Plain Films/CT/US/NM/MRI: chest (1v) Comments [facility], [place] NAME: MARISSA DOTYPRIMITIVO Berg [facility] REC#: [id number] PT STATUS: REG ER : 1980 PHYSICIAN: MILLA HOFFMAN MD ADMIT DATE: 12/14/19/ER Draft Date of Exam:12/14/19 CHEST 1 VIEW, AP/PA ONLY IMPRESSION: Chest pain. EXAMINATION: Portable chest 4:02 p.m. FINDINGS: Heart size and pulmonary vascularity are normal. Lungs are clear. There are no effusions or pneumothoraces. IMPRESSION: Negative chest. Dictated on workstation # [id number] Dict: 12/14/19 1614 Trans: 12/14/19 161 PJE [id number] Interpreted by: FRANCISCO JAVIER SANCHEZ MD Electronically signed by: Reviewed: Reviewed by Me Departure Impression Primary Impression: Headache Qualified Codes: R51 - Headache Additional Impressions: Acute viral syndrome Pleuritis Disposition: 01 HOME, SELF-CARE Condition: Stable Departure-Patient Inst. Decision time for Depature: 16:23 Referrals: MAKSIM MOONEY MD (PCP) Primary Care Physician SHIVA SEE MD Patient Instructions: Migraines (DC), Viral Syndrome (DC), Pleuritic Chest Pain Add. Discharge Instructions: Drink plenty of fluids. Phenergan 1 tablet every 6 hours as necessary for nausea related to headache. Naproxen up to 500 mg twice a day as necessary for headache and pleuritic chest pain. Tylenol 1000 mg every 8 hours as necessary for pleuritic pain and headache. Expect symptoms to improve over the next several days. If not follow up with your primary care doctor next week. Plan follow-up with the [facility] outpatient by calling for an appointment in about 2 weeks. All discharge instructions reviewed with patient and/or family. Voiced understanding. Scripts Naproxen (Naprosyn) 500 Mg Tablet 500 MG PO BID for 14 Days, #30 TAB 0 Refills Prov: MILLA HOFFMAN 12/14/19 Promethazine HCl (Promethazine Tablet) 25 Mg Tablet 25 MG PO Q6H PRN for NAUSEA/VOMITING, #12 TAB 0 Refills Prov: MILLA HOFFMAN 12/14/19 Copy Copies To 1: SHIVA SEE MD, TITUS J Dec 14, 2019 14:43
[2019-12-14] MEDS ORDERED: diphenhydrAMINE 50 MG/ML INJ (BENADRYL) IVP ONE (14:45)
[2019-12-14] MEDS ORDERED: PROMETHAZINE INJ 25 MG/ML (PHENERGAN) AMP IVP ONE (14:45)
[2019-12-14] MEDS ORDERED: ASPIRIN 81 MG CHEW (CHILDREN'S ASA) PO ONE (14:45)
[2019-12-14 15:02] LABS: BASOPHILS % (AUTO) 0 % (0-10); EOSINOPHILS # (AUTO) 0.1 10^3/uL (0.0-0.3); EOSINOPHILS % (AUTO) 1 % (0-10); HEMATOCRIT 42 % (35-52); HEMOGLOBIN 14.1 G/DL (11.5-16.0); LYMPHOCYTES # (AUTO) 3.2 X 10^3 (1.0-4.0); LYMPHOCYTES % (AUTO) 44 % (12-44); MEAN CORPUSCULAR HEMOGLOBIN 29 PG (25-34); MEAN CORPUSCULAR HGB CONC 34 G/DL (32-36); MEAN CORPUSCULAR VOLUME 85 FL (80-99); MEAN PLATELET VOLUME 11.8 FL (7.4-10.4); MONOCYTES # (AUTO) 0.6 X 10^3 (0.0-1.0); MONOCYTES % (AUTO) 8 % (0-12); NEUTROPHILS # (AUTO) 3.5 X 10^3 (1.8-7.8); NEUTROPHILS % (AUTO) 47 % (42-75); PLATELET COUNT 245 10^3/uL (130-400); WHITE BLOOD COUNT 7.4 10^3/uL (4.3-11.0)
[2019-12-14 15:25] LABS: INR 0.9 (0.8-1.4)
[2019-12-14 16:06] LABS: ALBUMIN 3.8 GM/DL (3.2-4.5)
[2019-12-14 16:07] LABS: CHLORIDE 107 MMOL/L (98-107); POTASSIUM 4.1 MMOL/L (3.6-5.0); SODIUM 139 MMOL/L (135-145)
[2019-12-14 16:09] LABS: GLUCOSE 93 MG/DL (70-105); TOTAL PROTEIN 6.9 GM/DL (6.4-8.2)
[2019-12-14 16:10] LABS: CARBON DIOXIDE 23 MMOL/L (21-32)
[2019-12-14 16:11] LABS: BILIRUBIN,TOTAL 0.6 MG/DL (0.1-1.0)
[2019-12-14 16:12] LABS: ALKALINE PHOSPHATASE 77 U/L (40-136)
[2019-12-14 16:13] LABS: CREATININE SERUM 0.64 MG/DL (0.60-1.30); GFR ESTIMATED > 60
[2019-12-14 16:14] LABS: BUN/CREATININE RATIO 6
[2019-12-14 16:15] LABS: ALANINE AMINOTRANSFERASE 37 U/L (0-55)
--- NOTE | 2019-12-14 16:17 | Diagnostic Imaging Report ---
IMPRESSION: Chest pain. EXAMINATION: Portable chest 4:02 p.m. FINDINGS: Heart size and pulmonary vascularity are normal. Lungs are clear. There are no effusions or pneumothoraces. IMPRESSION: Negative chest. Dictated by: Dictated on workstation # [id number]
[2019-12-14] MEDS ORDERED: PROM25TA14 PO (16:44)
[2019-12-14] MEDS ORDERED: NAPR-1071 PO (16:44)
[2019-12-14 16:50] VITALS: BP 134/76
[2019-12-14] MEDS ORDERED: KETOROLAC 30 MG/ML VIAL IVP ONE (17:00)
== END 2019-12-14 16:50 | disposition home or self-care (01) ==
LOC: EDUNIT# 13:29 → ER 13:31
DX: B34.9 Viral infection, unspecified (principal); R09.1 Pleurisy; F17.210 Nicotine dependence, cigarettes, uncomplicated; Z88.2 Allergy status to sulfonamides; Z88.1 Allergy status to other antibiotic agents; Z20.828 Contact with and (suspected) exposure to other viral communicable diseases
CPT/HCPCS: 71045; 80053; 83735; 83874; 84484; 84703; 85025; 85610; 85730; 87804; 93005; 99284; U0002; 36415; 87635

== ENCOUNTER 2020-01-01 13:32 | Outpatient (RCR) | payer BC ==
[~2020-01-01 13:32] MED LIST changes: +NAPR-1071 PO; +PROM25TA14 PO
== END 2020-02-15 15:32 | disposition home or self-care (01) ==
PROVIDERS: ATTEND Family Medicine
DX: N39.3 Stress incontinence (female) (male) (principal); M54.5 Low back pain

== ENCOUNTER → 2020-03-08 | Outpatient (CLI) | payer BC ==
--- NOTE | 2020-03-08 13:39 | Diagnostic Imaging Report ---
PROCEDURE: CT chest without contrast. TECHNIQUE: Multiple contiguous axial images were obtained through the chest without the use of intravenous contrast. Auto Exposure Controls were utilized during the CT exam to meet ALARA standards for radiation dose reduction. INDICATION: History of a cough and dyspnea with nodule right lung. No current complaints. CORRELATION: Multiple prior studies, most recently 10/27/2019, baseline 02/16/2019 FINDINGS: A few scattered small nonpathologically enlarged mediastinal lymph nodes are present. The heart size is unremarkable. Thoracic aorta normal in contour. Small hiatal hernia present. Regional cystic change just below the major fissure in the anterior right lower lobe is again demonstrated. There does appear to be slight overall increased soft tissue density and perhaps thickening along the septal margins. There is again demonstration of a solid-appearing mass just along the more medial aspect. This currently measures 11 x 6 x 12 mm. At baseline imaging, measured approximately 10 x 5 x 11 mm. Stable to perhaps minimally increased in size. Small solid nodule lateral left lower lobe 5 mm in size, stable. No significant pleural effusion. The visualized portions of the upper abdomen are unremarkable. Bilateral breast masses are again demonstrated largest on the right. Patient has had previous breast imaging describing multiple breast cysts. IMPRESSION: 1. 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 Likely a developmental variation. This may reflect some superimposed infection/inflammatory changes. 2. The focal round mass just adjacent to this area is stable to perhaps minimally increased in size from baseline assessment as well. Consideration could be given to follow-up with PET examination. Alternatively, continued short-term follow-up imaging recommended. Dictated by: Dictated on workstation # [id number]
== END ==
LOC: RAD 11:45
PROVIDERS: ATTEND Nurse Practitioner Family
DX: J45.909 Unspecified asthma, uncomplicated (principal); R91.8 Other nonspecific abnormal finding of lung field; Z72.0 Tobacco use
CPT/HCPCS: 71250

== ENCOUNTER → 2020-04-09 | Outpatient (CLI) | payer BC ==
--- NOTE | 2020-04-10 09:24 | Diagnostic Imaging Report ---
INDICATION: Abnormal chest CT demonstrating a soft tissue nodule in the right lower lobe. Study is performed for further evaluation. TECHNIQUE: Serum blood glucose level at the time of injection is 111 mg/dL. Patient was administered 15.5 mCi F-18 FDG intravenously in the left forearm and PET imaging was performed from the top of the skull to mid thighs. Noncontrast CT was also performed for attenuation correction and anatomic correlation. COMPARISON: No prior PET/CT studies are available for comparison. Comparison is made with recent CT chest from 03/08/2020. FINDINGS: There is symmetric activity throughout the brain. Soft tissues of the neck are unremarkable. No mediastinal or hilar hypermetabolism is identified. Pulmonary parenchyma is unremarkable. Specifically, the nodule noted in the right lower lobe on recent CT chest does not show FDG avidity. Physiologic activity throughout the GI and tracts of the abdomen and pelvis is noted. No suspicious foci are identified. IMPRESSION: Unremarkable PET/CT study. Dictated by: Dictated on workstation # [id number]
== END ==
LOC: RAD 12:00
PROVIDERS: ATTEND Nurse Practitioner Family
DX: R91.8 Other nonspecific abnormal finding of lung field (principal)
CPT/HCPCS: 78815; A9552

== ENCOUNTER → 2020-09-10 | Outpatient (CLI) | payer BC ==
[~2020-09-10] MED LIST changes: +CATHETER FLUSH 10 ML SYR IV PRN; +ESCI-2; -ESCI10TA55; +HOLD METFORMIN - RECEIVED CONTRAST 20 ML VIAL IV SCH; +IOHEXOL 350 MG/ML 100 ML (OMNIPAQUE 350) VIAL IV ONE; +NS 100 ML (IVPB) BAG IV ONE
[2020-09-10 10:43] LABS: BUN/CREATININE RATIO 6; CREATININE SERUM 0.67 MG/DL (0.60-1.30); GFR ESTIMATED > 60
--- NOTE | 2020-09-10 13:02 | Diagnostic Imaging Report ---
PROCEDURE: CT chest with contrast only. TECHNIQUE: Multiple contiguous axial images were obtained through the chest after administration of intravenous contrast. Auto Exposure Controls were utilized during the CT exam to meet ALARA standards for radiation dose reduction. INDICATION: Evaluate lung mass. COMPARISON: Chest CT of 03/08/2020 and 06/30/2019 as well as correlated with the metabolic PET CT of 04/09/2014. FINDINGS: Within a focal area of bronchiectasis and cyst formation in the right lower lobe, there is a central ovoid nodule measuring 9 x 4 mm, previously 11 x 6 mm on the most recent CT and unchanged from the correlative CT of 06/30/2019. This was not metabolically active on PET. The stability and non-metabolic activity strongly favor benignity. A followup in 1 year is suggested. This likely reflects an area of chronic mucoid impaction. The lungs are otherwise unremarkable. No new or spiculated mass. No thoracic adenopathy. No evidence for acute pneumonia, effusion, or pneumothorax. No chest wall pathology. The nonaneurysmal aorta is patent. The visualized upper abdomen is nonacute. IMPRESSION: Stable likely benign right lower lobe lung nodule within the central portion of a focal segment of bronchiectasis and cyst formation. This was negative on a previous PET and unchanged from June 2019. One additional 1 year followup is recommended. No adverse interval development or new abnormality. Dictated by: Dictated on workstation # [id number]
== END ==
LOC: RAD 10:00
PROVIDERS: ATTEND Nurse Practitioner Family
DX: R91.1 Solitary pulmonary nodule (principal); J98.4 Other disorders of lung; J47.9 Bronchiectasis, uncomplicated
CPT/HCPCS: 36415; 71260; 82565; 84520

== ENCOUNTER 2022-11-02 12:00 | Emergency (ER) | payer BC ==
[~2022-11-02] VITALS: Ht 170.2 cm; Wt 72.6 kg
[~2022-11-02 12:00] MED LIST changes: -CATHETER FLUSH 10 ML SYR IV PRN; +CYCL10TA25 PO; -CYCL10TA9 PO; -HOLD METFORMIN - RECEIVED CONTRAST 20 ML VIAL IV SCH; -IOHEXOL 350 MG/ML 100 ML (OMNIPAQUE 350) VIAL IV ONE; -NS 100 ML (IVPB) BAG IV ONE
[2022-11-02] MEDS ORDERED: ASPIRIN 81 MG CHEWABLE TABLET PO ONE (12:45)
[2022-11-02 12:47] LABS: CHLORIDE 111 MMOL/L (98-107); POTASSIUM 3.7 MMOL/L (3.6-5.0); SODIUM 141 MMOL/L (135-145)
[2022-11-02 12:49] LABS: CALCIUM 9.3 MG/DL (8.5-10.1)
[2022-11-02 12:50] LABS: BASOPHILS # (AUTO) 0.1 10^3/uL (0.0-0.1); BASOPHILS % (AUTO) 1 % (0-10); EOSINOPHILS # (AUTO) 0.1 10^3/uL (0.0-0.3); EOSINOPHILS % (AUTO) 2 % (0-10); GLUCOSE 105 MG/DL (70-105); HEMATOCRIT 44 % (35-52); HEMOGLOBIN 14.3 g/dL (11.5-16.0); LYMPHOCYTES # (AUTO) 2.8 10^3/uL (1.0-4.0); LYMPHOCYTES % (AUTO) 50 % (12-44); MEAN CORPUSCULAR HEMOGLOBIN 28 pg (25-34); MEAN CORPUSCULAR HGB CONC 33 g/dL (32-36); MEAN CORPUSCULAR VOLUME 86 fL (80-99); MONOCYTES # (AUTO) 0.5 10^3/uL (0.0-1.0); MONOCYTES % (AUTO) 8 % (0-12); NEUTROPHILS # (AUTO) 2.2 10^3/uL (1.8-7.8); NEUTROPHILS % (AUTO) 39 % (42-75); PLATELET COUNT 262 10^3/uL (130-400); TOTAL PROTEIN 7.1 GM/DL (6.4-8.2); WHITE BLOOD COUNT 5.6 10^3/uL (4.3-11.0)
[2022-11-02 12:51] LABS: BILIRUBIN,TOTAL 0.7 MG/DL (0.1-1.0); CARBON DIOXIDE 23 MMOL/L (21-32)
--- NOTE | 2022-11-02 12:51 | ED Cardiac General ---
History of Present Illness General Chief Complaint: Cardiac/General Problems Stated Complaint: HIGH BLOOD PRESSURE | LIGHTHEADED | WEAKNESS Nursing Triage Note: PT AMBULATE TO ROOM 02 WITHOUT DIFFICULTY WITH C/O HYPERTENSION, GENERAL WEAKNESS, AND CHEST PRESSURE STARTING WEDNESDAY AND BLURRY VISION STARTING TODAY. PT REPORTS BP OF 150/108 TODAY. PT REPORTS CONTACTING [facility] AND WAS TOLD TO COME TO ED. Source: patient Exam Limitations: no limitations (EMY LOCKHART) History of Present Illness Date Seen by Provider: Nov 02, 2022 Time Seen by Provider: 12:49 Initial Comments Patient is a 41-year-old female who presents to the ED for elevated blood pressure, generalized weakness, chest pressure blurry vision headache. She states symptoms started on Wednesday with generalized head pain rates 5 out of 10. She noted her blood pressure reading as high as 150/108. She is currently on metoprolol 25 mg. They recently decreased her metoprolol secondary to improvement of blood pressure. She states her whole body feels weak and shaky since Wednesday. She has had this substernal chest pressure that is intermittent. Chest pressure at this time. She has associated nausea without vomiting. No shortness of breath or cough. Start developing blurry vision this morning. She does follow-up with [facility] at [place]. Was recommended come to ED for further evaluation. She did check her blood sugar at home which read 126. No history of coronary artery disease, stroke, COPD or asthma. History of smoking, dyslipidemia, hypertension. Normal urination. No current abdominal pain, fever, chills, dysuria, hematuria (EMY LOCKHART) Allergies and Home Medications Allergies Coded Allergies: sulfamethoxazole (Verified Allergy, Unknown, 01/06/19) PT REPORTS TURNING RED trimethoprim (Verified Allergy, Unknown, 01/06/19) PT REPORTS TURNING RED Patient Home Medication List Home Medication List Reviewed: Yes (EMY LOCKHART) Atorvastatin Calcium (Atorvastatin Calcium) 40 Mg Tablet, (Reported) Entered as Reported by: JAMI ROBERTS on 11/12/19 1358 Cyclobenzaprine HCl (Cyclobenzaprine HCl) 10 Mg Tablet, 5 MG PO Q8H PRN for SPASMS Prescribed by: MANINDER JAIN on 11/12/192053 Cyclobenzaprine HCl (Cyclobenzaprine HCl) 5 Mg Tablet, 5 MG PO TID Prescribed by: MANINDER JAIN on 11/12/19 1619 Escitalopram Oxalate (Escitalopram Oxalate) 10 Mg Tablet, (Reported) Entered as Reported by: JAMI ROBERTS on 11/12/19 1358 Fluticasone/Salmeterol (Advair 250-50 Diskus) 1 Each Blst.w.dev, (Reported) Entered as Reported by: JAMI ROBERTS on 11/12/19 1358 Metoprolol Succinate (Metoprolol Succinate) 50 Mg Tab.er.24h, (Reported) Entered as Reported by: JAMI ROBERTS on 11/12/19 1358 Naproxen (Naprosyn) 500 Mg Tablet, 500 MG PO BID Prescribed by: MILLA HOFFMAN on 12/14/19 1644 Paroxetine HCl (Paroxetine HCl) 40 Mg Tablet, (Reported) Entered as Reported by: JAMI ROBERTS on 11/12/19 1358 Promethazine HCl (Promethazine Tablet) 25 Mg Tablet, 25 MG PO Q6H PRN for NAUSEA/VOMITING Prescribed by: MILLA HOFFMAN on 12/14/19 1644 Review of Systems Review of Systems Constitutional: No chills, No diaphoresis, No fever; malaise, weakness EENTM: Blurred Vision; No Double Vision Cardiovascular: Chest Pain Gastrointestinal: Denies Abdominal Pain, Denies Diarrhea; Nausea; Denies Vomiting Genitourinary: Denies Burning Musculoskeletal: No back pain, No joint pain Skin: No change in color (EMY LOCKHART) All Other Systems Reviewed Negative Unless Noted: Yes (EMY LOCKHART) Past Entzxaf-Eqvrgn-Tqdzpw Hx Patient Social History Tobacco Use?: Yes Tobacco type used: Cigarettes Smoking Status: Current Everyday Smoker Smokeless Tobacco Frequency: Never a User Use of E-Cig and/or Vaping dev: No Use of E-Cig and/or Vaping Richard: Never a User Substance use?: No Alcohol Use?: Yes Alcohol Frequency: Once in a while Pt feels they are or have been: No (MEY LOCKHART) Immunizations Up To Date Tetanus Booster (TDap): Unknown PED Vaccines UTD: Yes (EMY LOCKHART) Seasonal Allergies Seasonal Allergies: No (EMY LOCKHART) Past Medical History Surgeries: Yes Tubal Ligation Respiratory: No Cardiac: Yes Hypertension, Palpitations Neurological: No Reproductive Disorders: 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 oz. 81.633968we; 25.00 BMI Method:Stated General Appearance: No Apparent Distress, WD/WN HEENT: PERRL/EOMI, TMs Normal, Normal ENT Inspection, Pharynx Normal Neck: Full Range of Motion, Normal Inspection, Non Tender, Supple Respiratory: Chest Non Tender, Lungs Clear, Normal Breath Sounds, No Accessory Muscle Use, No Respiratory Distress Cardiovascular: Regular Rate, Rhythm, No Edema, No Gallop, No JVD Gastrointestinal: Normal Bowel Sounds, No Organomegaly, No Pulsatile Mass, Non Tender Extremity: Normal Capillary Refill, Normal Inspection, Normal Range of Motion, Non Tender Neurologic/Psychiatric: Alert, Oriented x3, No Motor/Sensory Deficits, Normal Mood/Affect, risk control product liability director II-XII Norm as Tested Skin: Normal Color, Warm/Dry (EMY LOCKHART) Progress/Results/Core Measures Results/Orders Lab Results Laboratory Tests Test 11/02/22 12:30 Range/Units White Blood Count 5.6 4.3-11.0 10^3/uL Red Blood Count 5.11 3.80-5.11 10^6/uL Hemoglobin 14.3 11.5-16.0 g/dL Hematocrit 44 35-52 % Mean Corpuscular Volume 86 80-99 fL Mean Corpuscular Hemoglobin 28 25-34 pg Mean Corpuscular Hemoglobin Concent 33 32-36 g/dL Red Cell Distribution Width 13.7 10.0-14.5 % Platelet Count 262 130-400 10^3/uL Mean Platelet Volume 11.0 9.0-12.2 fL Immature Granulocyte % (Auto) 0 % Neutrophils (%) (Auto) 39 L 42-75 % Lymphocytes (%) (Auto) 50 H 12-44 % Monocytes (%) (Auto) 8 0-12 % Eosinophils (%) (Auto) 2 0-10 % Basophils (%) (Auto) 1 0-10 % Neutrophils # (Auto) 2.2 1.8-7.8 10^3/uL Lymphocytes # (Auto) 2.8 1.0-4.0 10^3/uL Monocytes # (Auto) 0.5 0.0-1.0 10^3/uL Eosinophils # (Auto) 0.1 0.0-0.3 10^3/uL Basophils # (Auto) 0.1 0.0-0.1 10^3/uL Immature Granulocyte # (Auto) 0.0 0.0-0.1 10^3/uL Prothrombin Time 13.3 12.2-14.7 SEC INR Comment 1.0 0.8-1.4 Activated Partial Thromboplast Time 31 24-35 SEC Sodium Level 141 135-145 MMOL/L Potassium Level 3.7 3.6-5.0 MMOL/L Chloride Level 111 H 98-107 MMOL/L Carbon Dioxide Level 23 21-32 MMOL/L Anion Gap 7 5-14 MMOL/L Blood Urea Nitrogen 5 L 7-18 MG/DL Creatinine 0.62 0.60-1.30 MG/DL Estimat Glomerular Filtration Rate 115 BUN/Creatinine Ratio 8 Glucose Level 105 70-105 MG/DL Calcium Level 9.3 8.5-10.1 MG/DL Corrected Calcium 9.3 8.5-10.1 MG/DL Magnesium Level 1.9 1.6-2.4 MG/DL Total Bilirubin 0.7 0.1-1.0 MG/DL Aspartate Amino Transf (AST/SGOT) 13 5-34 U/L Alanine Aminotransferase (ALT/SGPT) 14 0-55 U/L Alkaline Phosphatase 92 40-136 U/L Myoglobin 16.4 10.0-92.0 NG/ML Troponin I < 0.028 <0.028 NG/ML B-Type Natriuretic Peptide 77.4 <100.0 PG/ML Total Protein 7.1 6.4-8.2 GM/DL Albumin 4.0 3.2-4.5 GM/DL Lipase 20 8-78 U/L (YUE LAUGHLIN MD) Vital Signs/I&O 11/02/22 12:23 Temp 37.1 Pulse 77 Resp 18 B/P (MAP) 181/110 (133) O2 Delivery Room Air (YUE LAUGHLIN MD) Blood Pressure Mean: 133 Departure Communication (PCP) Reviewed previous ER visits, H&P, lab testing. Patient presents to ED with headache blurry vision, head pain, chest pain generalized weakness and shakiness. Symptoms started on Wednesday. She reports concern for elevated blood pressure. Switch from 100 mg metoprolol to 50 mg daily 3 months ago. No known cardiac history or history of stroke. On arrival alert and orient x4. GCS 15. Due to current complaint cardiac work-up CT scan of the head was ordered. She was hypertensive near 180 systolic. She has no focal neural deficits facial droop, slurred speech. CT scan of the head due to the head pain blurry vision which was negative for acute abnormality. Blood pressure continue to improve without any intervention. EKG showed sinus rhythm without evidence of ST elevation or depression. CBC, CMP grossly unremarkable. Chest x-ray was negative for pneumonia, mediastinal widening or pneumothorax. She does have some cardiac risk factors such as smoking, dyslipidemia, hypertension. Symptoms tend to improve after her blood pressure started to improve here. She did receive a full aspirin. No concerning ischemic EKG changes. Heart score of 3 however due to atypical type of presentation no delta troponin was ordered. She was not tachycardic or hypoxic suggesting PE. No recent travels or surgeries. No leg pain or swelling. She is currently pain-free. Suggest continue monitoring blood pressure at home. Follow-up your PCP this week for evaluation after today's visit. Suggestive blood pressure continues to remain high's such as of above at 180 may consider taking extra dose of your metoprolol. If continued to be symptomatic to return back to ED such as head pain, dizziness, chest pressure (EYM LOCKHART) Impression Primary Impression: Chest pain Additional Impression: Elevated blood pressure reading Disposition: HOME, SELF-CARE Condition: Stable Departure-Patient Inst. Decision time for Depature: 14:17 (EMY LOCKHART) Referrals: [facility] (PCP/Family) Primary Care Physician Patient Instructions: High blood pressure in adults Add. Discharge Instructions: Continue monitoring blood pressure. Follow-up your PCP this week for further evaluation All discharge instructions reviewed with patient and/or family. Voiced understanding. ATTENDING PHYSICIAN NOTE: I was physically present as attending physician in the emergency department during the care of this patient, but I was not directly involved in the decision making or delivery of care for this patient. (YUE LAUGHLIN MD) EMY LOCKHART Nov 02, 2022 12:51 YUE LAUGHLIN MD Nov 03, 2022 08:10
[2022-11-02 12:53] LABS: ALKALINE PHOSPHATASE 92 U/L (40-136); CREATININE SERUM 0.62 MG/DL (0.60-1.30); GFR ESTIMATED 115
[2022-11-02 12:54] LABS: BUN/CREATININE RATIO 8
[2022-11-02 12:56] LABS: ALANINE AMINOTRANSFERASE 14 U/L (0-55); MAGNESIUM 1.9 MG/DL (1.6-2.4)
[2022-11-02 12:57] LABS: LIPASE 20 U/L (8-78)
[2022-11-02 12:58] LABS: PROTHROMBIN TIME PATIENT 13.3 SEC (12.2-14.7)
--- NOTE | 2022-11-02 13:23 | Diagnostic Imaging Report ---
INDICATION: Chest pain and hypertension. Frontal chest obtained at 12:59 p.m. Heart and mediastinal silhouette are normal in appearance. The lungs are clear. There is no pneumothorax or pleural fluid. IMPRESSION: Negative chest. Dictated by: Dictated on workstation # [id number]
--- NOTE | 2022-11-02 13:43 | Diagnostic Imaging Report ---
PROCEDURE: CT head without contrast. TECHNIQUE: Multiple contiguous axial images were obtained through the brain without the use of intravenous contrast. Auto Exposure Controls were utilized during the CT exam to meet ALARA standards for radiation dose reduction. INDICATION: Hypertension and generalized weakness as well as blurred vision. Comparison is made with prior head CT from 10/17/2018. FINDINGS: The ventricles and sulci are within normal limits. No sulcal effacement or midline shift is identified. No acute intra-axial or extra-axial hemorrhage is detected. Cisterns are patent. Visualized paranasal sinuses are clear. IMPRESSION: No acute intracranial process is detected. Dictated by: Dictated on workstation # [id number]
[2022-11-02 14:27] VITALS: BP 134/72
== END 2022-11-02 14:27 | disposition home or self-care (01) ==
LOC: EDUNIT# 12:00 → ER 12:02
DX: I10 Essential (primary) hypertension (principal); F17.210 Nicotine dependence, cigarettes, uncomplicated; Z79.899 Other long term (current) drug therapy; Z28.310 Unvaccinated for COVID-19
CPT/HCPCS: 36415; 70450; 71045; 80053; 83690; 83735; 83874; 83880; 84484; 85025; 85610; 85730; 93005